=== PATIENT | female | born 1990 | race American Indian/Alaskan Native ===

== ENCOUNTER 2021-02-03 20:59 | Emergency (ER) | payer OTHER ==
--- NOTE | 2021-02-03 21:21 | Event Note ---
ED Screening Note Date of service: 02/03/21 Time: 21:19 ED Screening Note: pt presents with vag bleeding. Onset yesterday. Bleeding light, and used one pad. no bleeding today. She reports abd cramping, urinary frequency and hesistancy. She is G1; First OBGYN appt is 02/16 This initial assessment/diagnostic orders/clinical plan/treatment(s) is/are subject to change based on patients health status, clinical progression and re- assessment by fellow clinical providers in the ED. Further treatment and workup at subsequent clinical providers discretion. Patient/guardian urged not to elope from the ED as their condition may be serious if not clinically assessed and managed. Initial orders include: CBC CMP UA HCG rhogam w/u
[2021-02-03 21:37] LABS: Hemoglobin 13.8 gm/dl (10.1-14.3); Mean Corpuscular HGB Conc 35 % (30-34); Mean Corpuscular Volume 93 fl (79-97); Red Blood Count 4.32 M/mm3 (3.65-5.03); Red Cell Distribution Width 12.9 % (13.2-15.2)
[2021-02-03 21:40] LABS: Bacteria,Urine 1+ /HPF (Negative); Bilirubin,Urine NEG (Negative); Blood,Urine NEG (Negative); Color,Urine Colorless (Yellow); Protein,Urine <15 mg/dL mg/dL (Negative); Urobilinogen,Urine < 2.0 mg/dL (<2.0); WBC,Urine < 1.0 /HPF (0.0-6.0)
[2021-02-03 21:56] LABS: Alanine Aminotransferase 16 units/L (7-56); Albumin 4.5 g/dL (3.9-5); Blood Urea Nitrogen 8 mg/dL (7-17); Calcium 8.9 mg/dL (8.4-10.2); Hemolysis Index 4
[2021-02-03 21:57] LABS: BUN/Creatinine Ratio 16
[2021-02-03 22:29] LABS: Band Neutrophils # (Manual) 0.1 K/mm3; Total Cells Counted 100
[2021-02-03 22:30] LABS: Platelet Clumps Rare; Platelet Estimate Consistent w Auto
[2021-02-03 22:33] LABS: Platelet Count 209 K/mm3 (140-440)
--- NOTE | 2021-02-03 23:03 | Emergency Department Report ---
ED Female HPI - General Chief complaint: Vaginal Bleeding Stated complaint: 6 WEEKS ;VAGINAL BLEEDING Source: patient Mode of arrival: Ambulatory Limitations: No Limitations - History of Present Illness Initial comments: Patient is a A0 30-year-old female who is approximately 5 weeks gestation and who presents to the ED with acute onset persistent vaginal bleeding and pelvic pain for the last 24 hours, worse in the last 6 hours. Patient states that the bleeding in the last 24 hours has been intermittent and persistent. Patient states that the pelvic pain is mild but that she was concerned because the vaginal bleeding was more than spotting. Patient denies dizziness, syncope, fever, chills, nausea, vomiting, chest pain, shortness of breath, headache, vaginal discharge, dysuria, urinary frequency and urgency or back pain. Patient states that she has not been evaluated by an [employer] physician since she conceived this . MD Complaint: vaginal bleeding, pelvic pain -: Sudden, hour(s) (24) Location: suprapubic, other (vagina) Radiation: non-radiating Severity: moderate Severity scale (0 -10): 5 Quality: dull Consistency: intermittent Improves with: none Worsens with: none Are you Now?: Yes Associated Symptoms: denies other symptoms, vaginal bleeding, abdominal pain. denies: vaginal discharge, nausea/vomiting, fever/chills, headaches, loss of appetite, dysuria, hematuria, rash, shortness of breath - Related Data Sexually active: Yes : 1 Para: 0 A: 0 Allergies Allergy/AdvReac Type Severity Reaction Status Date / Time No Known Allergies Allergy Unverified 02/03/21 21:24 ED Review of Systems ROS: Stated complaint: 6 WEEKS ;VAGINAL BLEEDING Other details as noted in HPI Constitutional: denies: chills, fever Eyes: denies: eye pain, eye discharge, vision change ENT: denies: ear pain, throat pain Respiratory: denies: cough, shortness of breath, wheezing Cardiovascular: denies: chest pain, palpitations Endocrine: no symptoms reported Gastrointestinal: abdominal pain (Suprapubic pain). denies: nausea, diarrhea Genitourinary: abnormal menses (Vaginal bleeding). denies: urgency, dysuria, frequency, hematuria, discharge Musculoskeletal: denies: back pain, joint swelling, arthralgia Skin: denies: rash, lesions Neurological: denies: headache, weakness, paresthesias Psychiatric: denies: anxiety, depression Hematological/Lymphatic: denies: easy bleeding, easy bruising ED Past Medical Hx - Past Medical History Previous Medical History?: No - Surgical History Past Surgical History?: Yes Additional Surgical History: Left salpigectomy. Left ovary - Social History Smoking Status: Never Smoker Substance Use Type: None ED Physical Exam - General Limitations: No Limitations General appearance: alert, in no apparent distress - Head Head exam: Present: atraumatic, normocephalic, normal inspection - Eye Eye exam: Present: normal appearance, PERRL, EOMI Pupils: Present: normal accommodation - ENT ENT exam: Present: normal exam, normal orophraynx, mucous membranes moist, TM's normal bilaterally, normal external ear exam - Neck Neck exam: Present: normal inspection, full ROM - Respiratory Respiratory exam: Present: normal lung sounds bilaterally. Absent: respiratory distress, wheezes, rales, rhonchi, stridor, chest wall tenderness, prolonged expiratory - Cardiovascular Cardiovascular Exam: Present: regular rate, normal rhythm, normal heart sounds. Absent: systolic murmur, diastolic murmur, rubs, gallop - GI/Abdominal GI/Abdominal exam: Present: soft, normal bowel sounds. Absent: tenderness, guarding, hyperactive bowel sounds, hypoactive bowel sounds - Bi-manual exam: Present: other (Pelvic exam deferred, patient prefers own [employer]) - Extremities Exam Extremities exam: Present: normal inspection, full ROM, normal capillary refill - Back Exam Back exam: Present: normal inspection, full ROM. Absent: tenderness, CVA tenderness (R), CVA tenderness (L), muscle spasm, paraspinal tenderness - Neurological Exam Neurological exam: Present: alert, oriented X3, CN II-XII intact, normal gait, reflexes normal - Psychiatric Psychiatric exam: Present: normal affect, normal mood - Skin Skin exam: Present: warm, dry, intact, normal color. Absent: rash ED Course Vital Signs 02/03/21 02/04/21 21:07 00:00 Temperature 98.8 F 98.5 F Pulse Rate 82 78 Respiratory 18 18 Rate Blood Pressure 124/75 111/70 O2 Sat by Pulse 100 99 Oximetry ED Medical Decision Making - Lab Data Result diagrams: 02/03/21 21:26 02/03/21 21:26 - Radiology Data Radiology results: report reviewed, image reviewed [facility] [address] [place] [address] Ultrasound Report Signed Patient: SUDHAKAR TERRAZAS MR#: [id number] : 1990 Acct:[id number] Age/Sex: 30 / F ADM Date: 02/03/21 Loc: ED Attending Dr: Ordering Physician: GERARD HUGGINS Date of Service: 02/03/21 Procedure(s): US OB <= 14 weeks fetus Accession Number(s): [id number] cc: GERARD HUGGINS US OB <= 14 weeks fetus INDICATION / CLINICAL INFORMATION: Vaginal bleeding, pain, . TECHNIQUE: Transabdominal. COMPARISON: None available. FINDINGS: UTERUS: Appears within normal limits. GESTATIONAL SAC: Well-defined oval shape and intrauterine in location. Measures 9 mm. EMBRYO/FETUS: - [place]-Rump Length = No pole ADNEXA: No significant abnormality. FREE FLUID: None. ADDITIONAL FINDINGS: None. IMPRESSION: 1. Intrauterine gestational sac with estimated sonographic age of 5 weeks 5 days. No pole which could be related to early intrauterine . Correlate with BHCG and repeat sonogram as clinically indicated. Signer Name: Dilip Menjivar MD Signed: 02/03/2021 10:59 PM Workstation Name: [id number] Transcribed By: NAMITA Dictated By: Dilip Menjivar MD Electronically Authenticated By: Dilip Menjivar MD Signed Date/Time: 02/03/212258 DD/ 54 TD/TT: Print Cancel - Medical Decision Making This is a A0 30-year-old female who is approximately 5 weeks gestation and who presents to the ED with acute onset persistent vaginal bleeding and pelvic pain for the last 24 hours, worse in the last 6 hours. Patient states that the bleeding in the last 24 hours has been intermittent and persistent. Patient states that the pelvic pain is mild but that she was concerned because the vaginal bleeding was more than spotting. In the ED, patient is alert and oriented x3 and is not in distress and is hemodynamically stable. Lab test results were reviewed and are all nonactionable except for mild acute leukocytosis of 11,800 and mild hyponatremia of 136 mmol/L. Urinalysis was also unremarkable. The hCG quant was 5279 and the patient is A positive blood type. The transvaginal ultrasound showed an intrauterine gestational sac with estimated sonographic age of 5 weeks 5 days. No pole which could be related to early intrauterine . Correlate with BHCG and repeat sonogram as clinically indicated. Based on the patient's history and physical exam findings as well as lab test results, the patient was discharged home and advised to maintain complete pelvic rest and to return to the ED to her [employer] physician for serial hCG quant tests in 2 days and for repeat transvaginal ultrasound to assess the heart rate. Patient was also advised to return to the ED immediately if her symptoms get worse. Patient verbalized understanding of the return precautions to the ED and with worsening symptoms. - Differential Diagnosis Threatened miscarriage; Ectopic pregancy; UTI; Subchorionic bleed; Cysts Critical care attestation.: If time is entered above; I have spent that time in minutes in the direct care of this critically ill patient, excluding procedure time. ED Disposition Clinical Impression: Threatened miscarriage in early , Vaginal bleeding in patient after first trimester Disposition: DC-01 TO HOME OR SELFCARE Is pt being admited?: No Does the pt Need Aspirin: No Condition: Stable Instructions: Threatened Miscarriage, [id number], Vaginal Bleeding During , First Trimester, [id number] Additional Instructions: Todos los resultados de las pruebas de laboratorio no son factibles, la cantidad de hCG fue de 5259 y la ecografa vaginal muestra un saco gestacional intrauterino con angel edad ecogrfica estimada de 5 semanas y 5 powers. Sin polo que pudiera estar relacionado con un embarazo intrauterino precoz. Por lo tanto, mantenga un descanso plvico completo sin levantar objetos pesados, actividades sexuales o cualquier otra actividad fsica y agotadora. Renetta un seguimiento con vazquez mdico de [employer] en 5-7 powers para angel reevaluacin. Regrese al servicio de urgencias de inmediato si los sntomas empeoran. Referrals: MARLY HERNANDEZ MD [Staff Physician] - 3-5 Days Time of Disposition: 23:28 Print Language: UPPER SORBIAN
--- NOTE | 2021-02-03 23:04 | Ultrasound Report ---
US OB <= 14 weeks fetus INDICATION / CLINICAL INFORMATION: Vaginal bleeding, pain, . TECHNIQUE: Transabdominal. COMPARISON: None available. FINDINGS: UTERUS: Appears within normal limits. GESTATIONAL SAC: Well-defined oval shape and intrauterine in location. Measures 9 mm. EMBRYO/FETUS: - [place]-Rump Length = No pole ADNEXA: No significant abnormality. FREE FLUID: None. ADDITIONAL FINDINGS: None. IMPRESSION: 1. Intrauterine gestational sac with estimated sonographic age of 5 weeks 5 days. No pole whic h could be related to early intrauterine . Correlate with BHCG and repeat sonogram as clinic ally indicated. Signer Name: Dilip Menjivar MD Signed: 02/03/2021 10:59 PM Workstation Name: [id number]
[2021-02-04 00:01] VITALS: BP 111/70
== END 2021-02-04 00:26 | disposition home or self-care (01) ==
LOC: ED 20:59
DX: O20.0 Threatened abortion (principal); Z3A.01 Less than 8 weeks gestation of pregnancy; Z90.89 Acquired absence of other organs; Z98.890 Other specified postprocedural states
CPT/HCPCS: 36415; 76801; 80053; 81001; 84702; 85007; 85025; 85461; 86850; 86900; 86901

== ENCOUNTER 2021-10-04 15:00 | Inpatient (IN) | payer OTHER ==
[2021-10-04] MEDS ORDERED: LACTATED RINGERS 1,000 ML ONE (16:42)
[2021-10-04] MEDS ORDERED: CARBOPROST TROMETHAMINE 250 MCG/1 ML INJ IM PRN (17:08)
[2021-10-04] MEDS ORDERED: METHYLERGONOVINE MALEATE 0.2 MG/ML VIAL IM PRN (17:08)
[2021-10-04] MEDS ORDERED: TERBUTALINE 1 MG/1 ML INJ SUB-Q PRN (17:08)
[2021-10-04] MEDS ORDERED: OXYTOCIN 10 UNIT/1 ML INJ IM PRN (17:08)
[2021-10-04] MEDS ORDERED: ACETAMINOPHEN 325 MG TAB PO PRN (17:08)
[2021-10-04] MEDS ORDERED: LIDOCAINE (2%) 20 MG/1 ML VIAL 20 ML MDV INFILTRATI ONE (17:08)
[2021-10-04] MEDS ORDERED: LOPERAMIDE 2 MG CAP PO PRN (17:08)
[2021-10-04] MEDS ORDERED: miSOPROStol 200 MCG TAB PR PRN (17:08)
[2021-10-04] MEDS ORDERED: BUTORPHANOL 2 MG/1 ML INJ IV PRN ×2 (17:08)
[2021-10-04] MEDS ORDERED: ePHEDrine SULFATE 50 MG/1 ML INJ IV PRN (17:08)
[2021-10-04] MEDS ORDERED: MINERAL OIL 30 ML ORAL LIQD PO PRN (17:08)
--- NOTE | 2021-10-04 17:58 | History and Physical Report ---
History of Present Illness Date of examination: 10/04/21 Date of admission: 10/04/21 15:00 Chief complaint: Here for an induction History of present illness: 31 y/o presents to [facility] @ 41wks for an IOL r/t post dates. Pt denies VB or LOF and admits to active FM. She initiated her pnc @ [facility] location @ 8 wks gestation. Pt has had an uneventful preg. Medical and family hx is unremarkable. Pt had her left oophorectomy and a tumor removed about 10 yrs ago. She is GBS pos. Pt was admitted to L&D for a cervical IOL. Past History Past Medical History: no pertinent history Past Surgical History: other (left oophorectomy and tumor removed about 10 yrs ago) Family/Genetic History: none Social history: no significant social history, full code - Obstetrical History Expected Date of Delivery: 09/27/21 Actual Gestation: 41 Week(s) 0 Day(s) : 1 Para: 0 Medications and Allergies Allergies Allergy/AdvReac Type Severity Reaction Status Date / Time No Known Allergies Allergy Unverified 02/03/21 21:24 Active Meds: Active Medications Acetaminophen (Acetaminophen 325 Mg Tab) 650 mg PO Q4H PRN PRN Reason: Pain, Mild (1-3) Butorphanol Tartrate (Butorphanol 2 Mg/1 Ml Inj) 2 mg IV Q2H PRN PRN Reason: Pain , Severe (7-10) Butorphanol Tartrate (Butorphanol 2 Mg/1 Ml Inj) 1 mg IV Q2H PRN PRN Reason: Pain, Moderate(4-6) LABOR PAIN Carboprost Tromethamine (Carboprost Tromethamine 250 Mcg/1 Ml Inj) 250 mcg IM ONCE PRN PRN Reason: Uterine Bleeding Dinoprostone (Dinoprostone 10 Mg Vag Supp) 10 mg VG ONCE ONE Stop: 10/04/21 20:01 Ephedrine Sulfate (Ephedrine Sulfate 50 Mg/1 Ml Inj) 10 mg IV Q2M PRN PRN Reason: Hypotension Fentanyl (Fentanyl 100 Mcg/2 Ml Inj) 100 mcg IV Q2H PRN PRN Reason: Pain,Severe (7-10) LABOR PAIN Oxytocin/Sodium Chloride (Pitocin/Ns 30 Unit/500ml) 30 units in 500 mls @ 2 mls/hr IV TITR [place]; Protocol Lactated Ringer's (Lactated Ringers) 1,000 mls @ 125 mls/hr IV DIRECT [place] Oxytocin/Sodium Chloride (Pitocin/Ns 30 Unit/500ml) 30 units in 500 mls @ 40 mls/hr IV TITR [place]; Protocol Ampicillin Sodium (Ampicillin/Ns 2 Gm/100 Ml) 2 gm in 100 mls @ 100 mls/hr IV ONCE ONE; Protocol Stop: 10/04/21 18:59 Ampicillin Sodium (Ampicillin/Ns 1 Gm/50 Ml) 1 gm in 50 mls @ 100 mls/hr IV Q4H [place]; Protocol Stop: 10/06/21 23:59 Loperamide HCl (Loperamide 2 Mg Cap) 2 mg PO ONCE PRN PRN Reason: give with Hemabate Methylergonovine Maleate (Methylergonovine Maleate 0.2 Mg/Ml Vial) 0.2 mg IM ONCE PRN PRN Reason: Uterine Bleeding Mineral Oil (Mineral Oil 30 Ml Oral Liqd) 30 ml PO QHS PRN PRN Reason: Constipation Misoprostol (Misoprostol 200 Mcg Tab) 800 mcg OR ONCE PRN PRN Reason: Uterine Bleeding Oxytocin (Oxytocin 10 Unit/1 Ml Inj) 10 unit IM ONCE PRN PRN Reason: Uterine Bleeding Terbutaline Sulfate (Terbutaline 1 Mg/1 Ml Inj) 0.25 mg SUB-Q ONCE PRN PRN Reason: Hyperstimulation/Hypertonicity Review of Systems All systems: negative Eyes: deferred Ears, nose, mouth and throat: deferred Breasts: normal Genitourinary: normal appearance Rectal Exam: normal exam-external/orifice - Vital Signs Vital signs: Vital Signs Temp Resp 98.7 F 20 10/04/21 15:28 10/04/21 15:28 Temp Pulse Resp BP Pulse Ox 98.7 F 91 H 20 133/89 97 10/04/21 15:28 10/04/21 17:48 10/04/21 15:28 10/04/21 15:50 10/04/21 17:48 - Physical Exam Breasts: Positive: normal Abdomen: Positive: normal appearance, soft, normal bowel sounds, other (gravid) Genitourinary (Female): Positive: normal external genitalia, normal perenium Vulva: both: normal Vagina: Positive: normal moisture Uterus: Positive: enlarged, normal contour, other (gravid) Adnexa: both: normal Anus/Rectum: Positive: normal perianal skin Extremities: Positive: normal - Obstetrical FHR: auscultation normal, category 1 Uterine Contraction Monitor Mode: External Cervical Dilatation: 1 (per nurse) Cervical Effacement Percentage: 60 station: -3 Uterine Contraction Pattern: Irregular Uterine Tone Measurement Phase: Resting Uterine Contraction Intensity: Mild Results All other labs normal. Assessment and Plan A: IUP @ 41wks (postdates) + GBS P: Admit to L&D for a cervidil IOL Continuous monitoring GBS protocal Anticipate
[2021-10-04] MEDS ORDERED: AMPICILLIN/NS 2 GM/100 ML 2 GM/100 ML BAG IV ONE (18:00)
[2021-10-04] MEDS ORDERED: OXYTOCIN DRIP 30 UNITS/500 ML BAG IV SCH ×2 (18:00)
[2021-10-04] MEDS ORDERED: DINOPROSTONE 10 MG VAG SUPP VG ONE ×3 (18:19→20:00)
--- NOTE | 2021-10-04 18:22 | Ultrasound Report ---
LIMITED OBSTETRICAL ULTRASOUND HISTORY: Postdates. FINDINGS: A single viable intrauterine is in the cephalic position. The placenta is posteri igor located at the fundus. heart tones are 159 bpm. Amniotic fluid index is normal measuring 1 4.6 cm. The largest pocket is quadrant 4 (4.9 cm). IMPRESSION: 1. Single viable intrauterine . 2. position cephalic. 3. Amniotic fluid index 14.6 cm. Signer Name: Gómez Veras MD Signed: 10/04/2021 6:18 PM Workstation Name: [id number]
[2021-10-04 18:35] LABS: Hematocrit 39.6 % (30.3-42.9); Hemoglobin 13.3 gm/dl (10.1-14.3); Mean Corpuscular HGB Conc 34 % (30-34); Mean Corpuscular Volume 93 fl (79-97); Platelet Count 244 K/mm3 (140-440); Red Blood Count 4.26 M/mm3 (3.65-5.03); Red Cell Distribution Width 13.8 % (13.2-15.2)
[2021-10-04] MEDS: LACTATED RINGERS 1,000 ML IV SCH (18:43)
[2021-10-05] MEDS: LACTATED RINGERS 1,000 ML IV SCH ×2 (04:52→14:59)
--- NOTE | 2021-10-05 12:15 | Progress Note ---
Assessment and Plan A: at 41 weeks, 1 day gestation. GBS positive. P: Continue IOL. Continuous EFM. GBS prophylaxis. Subjective - Subjective Date of service: 10/05/21 Principal diagnosis: at 41 weeks, 1 day; IOL Interval history: Receiving Pitocin for IOL. No LOF or VB. Patient reports: movement normal, contractions, no new complaints, no loss of fluid, no vaginal bleeding Objective - Vital Signs Vital Signs: Vital Signs - 12hr 10/05/21 10/05/21 10/05/21 00:18 00:23 00:28 Temperature Pulse Rate 115 H 102 H 73 Blood Pressure O2 Sat by Pulse 97 97 96 Oximetry 10/05/21 10/05/21 10/05/21 00:29 00:33 00:38 Temperature Pulse Rate 84 84 83 Blood Pressure O2 Sat by Pulse 94 95 96 Oximetry 10/05/21 10/05/21 10/05/21 00:43 00:48 00:53 Temperature Pulse Rate 85 104 H 94 H Blood Pressure O2 Sat by Pulse 96 97 96 Oximetry 10/05/21 10/05/21 10/05/21 00:58 01:03 01:08 Temperature Pulse Rate 91 H 91 H 85 Blood Pressure O2 Sat by Pulse 96 96 96 Oximetry 10/05/21 10/05/21 10/05/21 01:13 01:18 01:23 Temperature Pulse Rate 79 96 H 92 H Blood Pressure O2 Sat by Pulse 96 97 97 Oximetry 10/05/21 10/05/21 10/05/21 01:28 01:33 01:38 Temperature Pulse Rate 93 H 93 H 94 H Blood Pressure O2 Sat by Pulse 96 96 97 Oximetry 10/05/21 10/05/21 10/05/21 01:43 01:48 01:53 Temperature Pulse Rate 91 H 103 H 96 H Blood Pressure O2 Sat by Pulse 96 96 97 Oximetry 10/05/21 10/05/21 10/05/21 01:58 02:03 02:08 Temperature Pulse Rate 97 H 82 92 H Blood Pressure O2 Sat by Pulse 97 96 96 Oximetry 10/05/21 10/05/21 10/05/21 02:15 02:20 02:25 Temperature Pulse Rate 104 H 108 H 100 H Blood Pressure O2 Sat by Pulse 95 96 96 Oximetry 10/05/21 10/05/21 10/05/21 02:30 02:35 02:40 Temperature Pulse Rate 100 H 92 H 98 H Blood Pressure O2 Sat by Pulse 95 96 96 Oximetry 10/05/21 10/05/21 10/05/21 02:45 02:50 02:55 Temperature Pulse Rate 95 H 97 H 95 H Blood Pressure O2 Sat by Pulse 96 96 96 Oximetry 10/05/21 10/05/21 10/05/21 03:00 03:05 03:10 Temperature Pulse Rate 102 H 112 H 103 H Blood Pressure O2 Sat by Pulse 96 95 96 Oximetry 10/05/21 10/05/21 10/05/21 03:15 03:20 03:25 Temperature Pulse Rate 92 H 99 H 100 H Blood Pressure O2 Sat by Pulse 96 96 96 Oximetry 10/05/21 10/05/21 10/05/21 03:30 03:35 03:40 Temperature Pulse Rate 100 H 98 H 98 H Blood Pressure O2 Sat by Pulse 96 95 96 Oximetry 10/05/21 10/05/21 10/05/21 03:45 03:50 04:03 Temperature Pulse Rate 90 82 129 H Blood Pressure O2 Sat by Pulse 95 95 98 Oximetry 10/05/21 10/05/21 10/05/21 04:08 04:09 04:13 Temperature Pulse Rate 113 H 98 H 97 H Blood Pressure O2 Sat by Pulse 97 94 96 Oximetry 10/05/21 10/05/21 10/05/21 04:18 04:23 04:28 Temperature Pulse Rate 90 90 106 H Blood Pressure O2 Sat by Pulse 95 95 97 Oximetry 10/05/21 10/05/21 10/05/21 04:33 04:38 04:43 Temperature Pulse Rate 93 H 94 H 102 H Blood Pressure O2 Sat by Pulse 95 96 96 Oximetry 10/05/21 10/05/21 10/05/21 04:48 04:53 04:58 Temperature Pulse Rate 84 104 H 98 H Blood Pressure O2 Sat by Pulse 96 97 97 Oximetry 10/05/21 10/05/21 10/05/21 05:03 05:08 05:10 Temperature Pulse Rate 88 98 H 98 H Blood Pressure O2 Sat by Pulse 95 96 94 Oximetry 10/05/21 10/05/21 10/05/21 05:13 05:18 05:23 Temperature Pulse Rate 97 H 98 H 96 H Blood Pressure O2 Sat by Pulse 96 97 96 Oximetry 10/05/21 10/05/21 10/05/21 05:28 05:33 05:38 Temperature Pulse Rate 85 74 80 Blood Pressure O2 Sat by Pulse 96 96 96 Oximetry 10/05/21 10/05/21 10/05/21 05:52 05:57 06:02 Temperature Pulse Rate 116 H 120 H 127 H Blood Pressure O2 Sat by Pulse 95 96 95 Oximetry 10/05/21 10/05/21 10/05/21 06:07 06:12 06:16 Temperature Pulse Rate 122 H 129 H 125 H Blood Pressure O2 Sat by Pulse 96 96 94 Oximetry 10/05/21 10/05/21 10/05/21 06:17 06:21 06:22 Temperature Pulse Rate 120 H 132 H 123 H Blood Pressure O2 Sat by Pulse 96 94 95 Oximetry 10/05/21 10/05/21 10/05/21 06:34 06:39 06:44 Temperature Pulse Rate 108 H 102 H 102 H Blood Pressure O2 Sat by Pulse 97 96 96 Oximetry 10/05/21 10/05/21 10/05/21 06:49 06:54 06:59 Temperature Pulse Rate 114 H 108 H 100 H Blood Pressure O2 Sat by Pulse 96 97 96 Oximetry 10/05/21 10/05/21 10/05/21 07:04 07:09 07:13 Temperature Pulse Rate 98 H 101 H 93 H Blood Pressure O2 Sat by Pulse 96 96 94 Oximetry 10/05/21 10/05/21 10/05/21 07:14 07:19 07:24 Temperature Pulse Rate 94 H 88 103 H Blood Pressure O2 Sat by Pulse 95 95 96 Oximetry 10/05/21 10/05/21 10/05/21 07:29 07:30 07:34 Temperature Pulse Rate 104 H 90 110 H Blood Pressure 138/90 O2 Sat by Pulse 96 97 Oximetry 10/05/21 10/05/21 10/05/21 07:39 07:44 07:49 Temperature Pulse Rate 103 H 82 92 H Blood Pressure O2 Sat by Pulse 97 96 95 Oximetry 10/05/21 10/05/21 10/05/21 07:54 07:59 08:04 Temperature Pulse Rate 83 99 H 79 Blood Pressure 135/79 O2 Sat by Pulse 95 96 96 Oximetry 10/05/21 10/05/21 10/05/21 08:09 08:14 08:19 Temperature Pulse Rate 96 H 90 83 Blood Pressure O2 Sat by Pulse 97 95 95 Oximetry 10/05/21 10/05/21 10/05/21 08:24 08:29 08:34 Temperature Pulse Rate 104 H 89 87 Blood Pressure 125/79 O2 Sat by Pulse 96 96 96 Oximetry 10/05/21 10/05/21 10/05/21 08:39 08:44 08:49 Temperature Pulse Rate 77 89 95 H Blood Pressure O2 Sat by Pulse 96 96 96 Oximetry 10/05/21 10/05/21 10/05/21 08:54 08:59 09:04 Temperature Pulse Rate 84 81 78 Blood Pressure 134/82 O2 Sat by Pulse 96 96 96 Oximetry 10/05/21 10/05/21 10/05/21 09:05 09:09 09:14 Temperature Pulse Rate 93 H 93 H 109 H Blood Pressure O2 Sat by Pulse 94 95 96 Oximetry 10/05/21 10/05/21 10/05/21 09:19 09:24 09:29 Temperature Pulse Rate 92 H 113 H 89 Blood Pressure 139/79 O2 Sat by Pulse 98 97 97 Oximetry 10/05/21 10/05/21 10/05/21 09:34 09:39 09:44 Temperature Pulse Rate 90 97 H 91 H Blood Pressure O2 Sat by Pulse 97 97 96 Oximetry 10/05/21 10/05/21 10/05/21 09:49 09:54 09:58 Temperature Pulse Rate 89 93 H 82 Blood Pressure O2 Sat by Pulse 95 96 94 Oximetry 10/05/21 10/05/21 10/05/21 09:59 10:00 10:04 Temperature Pulse Rate 89 83 88 Blood Pressure 129/81 O2 Sat by Pulse 96 96 Oximetry 10/05/21 10/05/21 10/05/21 10:09 10:14 10:19 Temperature Pulse Rate 87 92 H 87 Blood Pressure O2 Sat by Pulse 96 97 96 Oximetry 10/05/21 10/05/21 10/05/21 10:24 10:29 10:30 Temperature Pulse Rate 85 91 H 90 Blood Pressure 138/86 O2 Sat by Pulse 96 97 Oximetry 10/05/21 10/05/21 10/05/21 10:31 10:34 10:39 Temperature Pulse Rate 85 73 82 Blood Pressure O2 Sat by Pulse 93 95 95 Oximetry 10/05/21 10/05/21 10/05/21 10:42 10:44 10:49 Temperature Pulse Rate 97 H 82 88 Blood Pressure O2 Sat by Pulse 94 96 95 Oximetry 10/05/21 10/05/21 10/05/21 10:59 11:04 11:09 Temperature Pulse Rate 53 L 87 83 Blood Pressure O2 Sat by Pulse 88 98 98 Oximetry 10/05/21 10/05/21 10/05/21 11:14 11:19 11:24 Temperature Pulse Rate 96 H 85 96 H Blood Pressure O2 Sat by Pulse 98 98 97 Oximetry 10/05/21 10/05/21 10/05/21 11:29 11:34 11:39 Temperature Pulse Rate 98 H 80 91 H Blood Pressure O2 Sat by Pulse 98 99 99 Oximetry 10/05/21 10/05/21 10/05/21 11:44 11:49 11:54 Temperature 98.2 F Pulse Rate 79 81 70 Blood Pressure O2 Sat by Pulse 97 98 98 Oximetry 10/05/21 10/05/21 10/05/21 11:59 12:02 12:03 Temperature 98.7 F Pulse Rate 93 H 82 Blood Pressure 138/87 O2 Sat by Pulse 98 Oximetry 10/05/21 10/05/21 12:04 12:09 Temperature Pulse Rate 94 H 88 Blood Pressure O2 Sat by Pulse 98 98 Oximetry - Exam Abdomen: Present: normal appearance, soft. Absent: distention, tenderness, guarding, rigidity FHR: category 1 Uterine Contraction Monitor Mode: External Cervical Dilatation: 2 Cervical Effacement Percentage: 40 station: -4 Uterine Contraction Pattern: Irregular Uterine Contraction Intensity: Mild Extremities: edema - Labs Labs: Laboratory Results - last 24 hr 10/04/21 10/04/21 10/04/21 15:40 Unknown Unknown WBC 9.5 RBC 4.26 Hgb 13.3 Hct 39.6 MCV 93 MCH 31 MCHC 34 RDW 13.8 Plt Count 244 Syphilis IgG Antibody Nonreactive Blood Type A POSITIVE Antibody Screen Negative
[2021-10-05] MEDS: AMPICILLIN/NS 1 GM/50 ML 1 GM/50 ML BAG IV SCH ×3 (12:19→23:15)
[2021-10-05] MEDS: fentaNYL 100 MCG/2 ML INJ IV PRN (21:57)
[2021-10-06] MEDS: fentaNYL 100 MCG/2 ML INJ IV PRN ×2 (01:27→05:01)
[2021-10-06] MEDS: AMPICILLIN/NS 1 GM/50 ML 1 GM/50 ML BAG IV SCH ×5 (03:22→21:00)
--- NOTE | 2021-10-06 05:00 | Event Note ---
Date: 10/06/21 SVE /-2.
[2021-10-06] MEDS ORDERED: ePHEDrine SULFATE 50 MG/1 ML INJ IV PRN (05:41)
[2021-10-06] MEDS ORDERED: NALOXONE 2 MG/2 ML INJ IV PRN (05:41)
--- NOTE | 2021-10-06 05:41 | Anesthesia Consultation ---
Anesthesia Consult and Med Hx Date of service: 10/06/21 - Airway Anesthetic Teeth Evaluation: Poor ROM Head & Neck: Adequate Mental/Hyoid Distance: Adequate Mallampati Class: Class II Intubation Access Assessment: Probably Good - Pulmonary Exam CTA: Yes - Cardiac Exam Cardiac Exam: RRR - Pre-Operative Health Status ASA Pre-Surgery Classification: ASA2 Proposed Anesthetic Plan: Epidural - Pulmonary Hx Smoking: No Hx Asthma: No Hx Respiratory Symptoms: No SOB: No COPD: No Home Oxygen Therapy: No Hx Pneumonia: No Hx Sleep Apnea: No - Cardiovascular System Hx Hypertension: No Hx Coronary Artery Disease: No Hx Heart Attack/AMI: No Hx Angina: No Hx Percutaneous Transluminal Coronary Angioplasty (PTCA): No Hx Cardia Arrhythmia: No Hx Pacemaker: No Hx Internal Defibrillator: No Hx Valvular Heart Disease: No Hx Heart Murmur: No Hx Peripheral Vascular Disease: No - Central Nervous System Hx Neuromuscular Disorder: No Hx Seizures: No CVA: No Hx Back Pain: Yes Hx Psychiatric Problems: No - Gastrointestinal Hx Ulcer: No Hx Gastroesophageal Reflux Disease: Yes - Endocrine Hx Renal Disease: No Hx End Stage Renal Disease: No Hx Cirrhosis: No Hx Liver Disease: No Hx Insulin Dependent Diabetes: No Hx Non-Insulin Dependent Diabetes: No Hx Thyroid Disease: No Hx Hypothyroidism: No Hx Hyperthyroidism: No - Hematic Hx Anemia: No Hx Sickle Cell Disease: No - Other Systems Hx Alcohol Use: No Hx Substance Use: No Hx Cancer: No Hx Obesity: Yes
--- NOTE | 2021-10-06 06:18 | Progress Note ---
Regional Anesthesia Block - Regional Anesthesia Block Start Time: 05:56 Stop Time: 06:05 Performed By:: SHAYNE RENE Procedure: Patient is requesting a laboring epidural for laboring pain. Patient IDed, H&P reviewed, all questions and concerns were answered, and consent was signed. Timeout was performed at bedside. Patient in sitting position. Sterile prep and drape was performed. [3] ml of 1% lidocaine skin wheal at L[3]- L [4]. 18- gauge Tuohy epidural needle was advanced to loss of resistance with saline technique 6cm. Negative CSF negative blood. Epidural catheter advanced to [10] centimeters. [NEGATIVE] Aspiration [NEGATIVE] test dose. Sterile dressing applied. Patient tolerated procedure.
[2021-10-06] MEDS: fentaNYL-BUPIV 2 MCG/ML-0.125% 200 MCG/100 ML BAG EPIDURAL SCH ×3 (06:20→20:00)
[2021-10-06] MEDS: LACTATED RINGERS 1,000 ML IV SCH ×2 (07:28→16:27)
--- NOTE | 2021-10-06 10:25 | Progress Note ---
Assessment and Plan - Patient Problems (1) Post-dates Current Visit: Yes Status: Acute Plan to address problem: Now on day 3 of postdates induction. Now 7 centimeters status post artificial rupture membranes thin meconium. --Pitocin per protocol for induction of labor --Anticipate Subjective - Subjective Date of service: 10/06/21 Principal diagnosis: at 41 weeks, 3 day; IOL Interval history: Patient reports she is feeling well understands indication for delivery for postdates induction. Patient reports: loss of fluid (s/p AROM thin meconium), movement normal, contractions, no new complaints, no vaginal bleeding Objective - Vital Signs Vital Signs: Vital Signs - 12hr 10/05/21 10/05/21 10/05/21 22:26 22:31 22:36 Temperature Pulse Rate 82 81 97 H Respiratory Rate Blood Pressure O2 Sat by Pulse 96 96 96 Oximetry O2 Sat by Pulse Oximetry [ Bilateral Throughout] 10/05/21 10/05/21 10/05/21 22:38 22:41 22:43 Temperature Pulse Rate 78 84 85 Respiratory Rate Blood Pressure 126/71 O2 Sat by Pulse 95 94 Oximetry O2 Sat by Pulse Oximetry [ Bilateral Throughout] 10/05/21 10/05/21 10/05/21 22:46 22:51 22:56 Temperature Pulse Rate 82 77 79 Respiratory Rate Blood Pressure O2 Sat by Pulse 95 96 96 Oximetry O2 Sat by Pulse Oximetry [ Bilateral Throughout] 10/05/21 10/05/21 10/05/21 23:01 23:06 23:08 Temperature Pulse Rate 83 78 84 Respiratory Rate Blood Pressure 119/67 O2 Sat by Pulse 95 96 Oximetry O2 Sat by Pulse Oximetry [ Bilateral Throughout] 10/05/21 10/05/21 10/05/21 23:11 23:16 23:21 Temperature Pulse Rate 81 78 80 Respiratory Rate Blood Pressure O2 Sat by Pulse 96 96 95 Oximetry O2 Sat by Pulse Oximetry [ Bilateral Throughout] 10/05/21 10/05/21 10/05/21 23:26 23:31 23:36 Temperature Pulse Rate 79 88 72 Respiratory Rate Blood Pressure O2 Sat by Pulse 96 96 96 Oximetry O2 Sat by Pulse Oximetry [ Bilateral Throughout] 10/05/21 10/05/21 10/05/21 23:38 23:41 23:46 Temperature Pulse Rate 85 78 103 H Respiratory Rate Blood Pressure 125/72 O2 Sat by Pulse 95 97 Oximetry O2 Sat by Pulse Oximetry [ Bilateral Throughout] 10/05/21 10/05/21 10/06/21 23:51 23:56 00:01 Temperature Pulse Rate 81 92 H 85 Respiratory Rate Blood Pressure O2 Sat by Pulse 96 96 96 Oximetry O2 Sat by Pulse Oximetry [ Bilateral Throughout] 10/06/21 10/06/21 10/06/21 00:06 00:09 00:11 Temperature Pulse Rate 82 77 72 Respiratory Rate Blood Pressure 141/75 O2 Sat by Pulse 96 96 Oximetry O2 Sat by Pulse Oximetry [ Bilateral Throughout] 10/06/21 10/06/21 10/06/21 00:16 00:21 00:26 Temperature Pulse Rate 75 88 88 Respiratory Rate Blood Pressure O2 Sat by Pulse 95 96 95 Oximetry O2 Sat by Pulse Oximetry [ Bilateral Throughout] 10/06/21 10/06/21 10/06/21 00:42 00:47 00:54 Temperature Pulse Rate 112 H 109 H 98 H Respiratory Rate Blood Pressure O2 Sat by Pulse 97 97 97 Oximetry O2 Sat by Pulse Oximetry [ Bilateral Throughout] 10/06/21 10/06/21 10/06/21 00:59 01:04 01:19 Temperature Pulse Rate 92 H 80 99 H Respiratory Rate Blood Pressure O2 Sat by Pulse 97 99 97 Oximetry O2 Sat by Pulse Oximetry [ Bilateral Throughout] 10/06/21 10/06/21 10/06/21 01:24 01:29 01:32 Temperature Pulse Rate 87 88 80 Respiratory Rate Blood Pressure O2 Sat by Pulse 97 99 94 Oximetry O2 Sat by Pulse Oximetry [ Bilateral Throughout] 10/06/21 10/06/21 10/06/21 01:34 01:37 01:39 Temperature Pulse Rate 80 73 75 Respiratory Rate Blood Pressure 119/67 O2 Sat by Pulse 95 94 94 Oximetry O2 Sat by Pulse Oximetry [ Bilateral Throughout] 10/06/21 10/06/21 10/06/21 01:42 01:44 01:49 Temperature Pulse Rate 83 80 84 Respiratory Rate Blood Pressure O2 Sat by Pulse 94 95 95 Oximetry O2 Sat by Pulse Oximetry [ Bilateral Throughout] 10/06/21 10/06/21 10/06/21 01:51 01:54 01:59 Temperature Pulse Rate 88 83 97 H Respiratory Rate Blood Pressure O2 Sat by Pulse 94 95 95 Oximetry O2 Sat by Pulse Oximetry [ Bilateral Throughout] 10/06/21 10/06/21 10/06/21 02:04 02:07 02:09 Temperature Pulse Rate 82 92 H 74 Respiratory Rate Blood Pressure 131/67 O2 Sat by Pulse 95 94 95 Oximetry O2 Sat by Pulse Oximetry [ Bilateral Throughout] 10/06/21 10/06/21 10/06/21 02:14 02:19 02:24 Temperature Pulse Rate 102 H 92 H 74 Respiratory Rate Blood Pressure O2 Sat by Pulse 97 95 96 Oximetry O2 Sat by Pulse Oximetry [ Bilateral Throughout] 10/06/21 10/06/21 10/06/21 02:29 02:34 02:39 Temperature Pulse Rate 85 88 85 Respiratory Rate Blood Pressure 127/74 O2 Sat by Pulse 95 96 96 Oximetry O2 Sat by Pulse Oximetry [ Bilateral Throughout] 10/06/21 10/06/21 10/06/21 02:44 02:49 02:54 Temperature Pulse Rate 92 H 100 H 103 H Respiratory Rate Blood Pressure O2 Sat by Pulse 96 98 98 Oximetry O2 Sat by Pulse Oximetry [ Bilateral Throughout] 10/06/21 10/06/21 10/06/21 02:59 03:04 03:09 Temperature Pulse Rate 110 H 77 95 H Respiratory Rate Blood Pressure 152/86 O2 Sat by Pulse 98 98 98 Oximetry O2 Sat by Pulse Oximetry [ Bilateral Throughout] 10/06/21 10/06/21 10/06/21 03:25 03:30 03:35 Temperature 98.8 F Pulse Rate 117 H 99 H 100 H Respiratory 18 Rate Blood Pressure O2 Sat by Pulse 96 98 95 Oximetry O2 Sat by Pulse Oximetry [ Bilateral Throughout] 10/06/21 10/06/21 10/06/21 03:38 03:40 03:45 Temperature Pulse Rate 91 H 85 94 H Respiratory Rate Blood Pressure 126/71 O2 Sat by Pulse 93 95 96 Oximetry O2 Sat by Pulse Oximetry [ Bilateral Throughout] 10/06/21 10/06/21 10/06/21 03:50 03:55 04:00 Temperature Pulse Rate 83 71 77 Respiratory Rate Blood Pressure O2 Sat by Pulse 95 96 95 Oximetry O2 Sat by Pulse Oximetry [ Bilateral Throughout] 10/06/21 10/06/21 10/06/21 04:05 04:08 04:10 Temperature Pulse Rate 86 86 96 H Respiratory Rate Blood Pressure 138/79 O2 Sat by Pulse 96 94 98 Oximetry O2 Sat by Pulse Oximetry [ Bilateral Throughout] 10/06/21 10/06/21 10/06/21 04:15 04:20 04:26 Temperature Pulse Rate 98 H 96 H 94 H Respiratory Rate Blood Pressure O2 Sat by Pulse 98 98 98 Oximetry O2 Sat by Pulse Oximetry [ Bilateral Throughout] 10/06/21 10/06/21 10/06/21 04:38 04:40 04:46 Temperature Pulse Rate 101 H Respiratory Rate Blood Pressure 122/83 O2 Sat by Pulse 86 50 L Oximetry O2 Sat by Pulse Oximetry [ Bilateral Throughout] 10/06/21 10/06/21 10/06/21 05:08 05:39 05:56 Temperature Pulse Rate 89 90 Respiratory Rate Blood Pressure 121/69 133/78 O2 Sat by Pulse 83 L Oximetry O2 Sat by Pulse Oximetry [ Bilateral Throughout] 10/06/21 10/06/21 10/06/21 05:57 06:00 06:02 Temperature Pulse Rate 130 H 123 H 132 H Respiratory Rate Blood Pressure 140/82 140/89 O2 Sat by Pulse 99 97 Oximetry O2 Sat by Pulse Oximetry [ Bilateral Throughout] 10/06/21 10/06/21 10/06/21 06:04 06:06 06:07 Temperature Pulse Rate 109 H 118 H 111 H Respiratory Rate Blood Pressure 144/79 147/80 O2 Sat by Pulse 96 Oximetry O2 Sat by Pulse Oximetry [ Bilateral Throughout] 10/06/21 10/06/21 10/06/21 06:08 06:10 06:12 Temperature Pulse Rate 111 H 114 H 116 H Respiratory Rate Blood Pressure 140/75 139/74 142/79 O2 Sat by Pulse 96 Oximetry O2 Sat by Pulse Oximetry [ Bilateral Throughout] 10/06/21 10/06/21 10/06/21 06:14 06:16 06:17 Temperature Pulse Rate 104 H 96 H 100 H Respiratory Rate Blood Pressure 142/72 131/78 O2 Sat by Pulse 95 Oximetry O2 Sat by Pulse Oximetry [ Bilateral Throughout] 10/06/21 10/06/21 10/06/21 06:18 06:20 06:22 Temperature Pulse Rate 100 H 98 H 95 H Respiratory Rate Blood Pressure 131/68 122/71 126/70 O2 Sat by Pulse 94 Oximetry O2 Sat by Pulse Oximetry [ Bilateral Throughout] 10/06/21 10/06/21 10/06/21 06:24 06:26 06:27 Temperature Pulse Rate 90 103 H 107 H Respiratory Rate Blood Pressure 117/64 126/72 O2 Sat by Pulse 95 Oximetry O2 Sat by Pulse Oximetry [ Bilateral Throughout] 10/06/21 10/06/21 10/06/21 06:28 06:30 06:32 Temperature Pulse Rate 101 H 103 H 99 H Respiratory Rate Blood Pressure 129/72 139/80 129/76 O2 Sat by Pulse 94 95 Oximetry O2 Sat by Pulse Oximetry [ Bilateral Throughout] 10/06/21 10/06/21 10/06/21 06:33 06:34 06:36 Temperature Pulse Rate 94 H 98 H 85 Respiratory Rate Blood Pressure 129/75 121/68 O2 Sat by Pulse 94 Oximetry O2 Sat by Pulse Oximetry [ Bilateral Throughout] 10/06/21 10/06/21 10/06/21 06:37 06:38 06:40 Temperature Pulse Rate 88 88 94 H Respiratory Rate Blood Pressure 115/62 116/62 O2 Sat by Pulse 94 Oximetry O2 Sat by Pulse Oximetry [ Bilateral Throughout] 10/06/21 10/06/21 10/06/21 06:42 06:44 06:46 Temperature Pulse Rate 90 88 86 Respiratory Rate Blood Pressure 109/58 114/63 115/63 O2 Sat by Pulse 94 94 Oximetry O2 Sat by Pulse Oximetry [ Bilateral Throughout] 10/06/21 10/06/21 10/06/21 06:47 06:48 06:50 Temperature Pulse Rate 87 85 88 Respiratory Rate Blood Pressure 112/57 109/58 O2 Sat by Pulse 94 Oximetry O2 Sat by Pulse Oximetry [ Bilateral Throughout] 10/06/21 10/06/21 10/06/21 06:52 06:54 06:56 Temperature Pulse Rate 88 87 81 Respiratory Rate Blood Pressure 109/55 109/56 109/55 O2 Sat by Pulse 94 Oximetry O2 Sat by Pulse Oximetry [ Bilateral Throughout] 10/06/21 10/06/21 10/06/21 06:57 06:58 07:00 Temperature Pulse Rate 85 83 85 Respiratory Rate Blood Pressure 110/55 107/54 O2 Sat by Pulse 93 Oximetry O2 Sat by Pulse Oximetry [ Bilateral Throughout] 10/06/21 10/06/21 10/06/21 07:02 07:03 07:04 Temperature Pulse Rate 86 100 H 114 H Respiratory Rate Blood Pressure 103/54 120/73 O2 Sat by Pulse 93 94 Oximetry O2 Sat by Pulse Oximetry [ Bilateral Throughout] 10/06/21 10/06/21 10/06/21 07:06 07:07 07:08 Temperature Pulse Rate 96 H 113 H 116 H Respiratory Rate Blood Pressure 118/72 123/71 O2 Sat by Pulse 95 Oximetry O2 Sat by Pulse Oximetry [ Bilateral Throughout] 10/06/21 10/06/21 10/06/21 07:09 07:10 07:12 Temperature Pulse Rate 104 H 104 H 124 H Respiratory Rate Blood Pressure 116/65 116/60 O2 Sat by Pulse 94 94 Oximetry O2 Sat by Pulse Oximetry [ Bilateral Throughout] 10/06/21 10/06/21 10/06/21 07:14 07:15 07:16 Temperature Pulse Rate 101 H 107 H 103 H Respiratory Rate Blood Pressure 119/59 119/63 O2 Sat by Pulse 94 Oximetry O2 Sat by Pulse Oximetry [ Bilateral Throughout] 10/06/21 10/06/21 10/06/21 07:17 07:18 07:20 Temperature Pulse Rate 103 H 101 H 94 H Respiratory Rate Blood Pressure 113/60 115/59 O2 Sat by Pulse 95 94 Oximetry O2 Sat by Pulse Oximetry [ Bilateral Throughout] 10/06/21 10/06/21 10/06/21 07:22 07:24 07:26 Temperature Pulse Rate 109 H 103 H 113 H Respiratory Rate Blood Pressure 116/63 116/64 115/64 O2 Sat by Pulse 95 94 Oximetry O2 Sat by Pulse Oximetry [ Bilateral Throughout] 10/06/21 10/06/21 10/06/21 07:27 07:32 07:36 Temperature 98.9 F Pulse Rate 96 H 98 H 112 H Respiratory Rate Blood Pressure O2 Sat by Pulse 98 98 Oximetry O2 Sat by Pulse 98 Oximetry [ Bilateral Throughout] 10/06/21 10/06/21 10/06/21 07:37 07:42 07:47 Temperature Pulse Rate 106 H 102 H 91 H Respiratory Rate Blood Pressure 110/62 O2 Sat by Pulse 97 98 98 Oximetry O2 Sat by Pulse Oximetry [ Bilateral Throughout] 10/06/21 10/06/21 10/06/21 07:52 07:57 08:02 Temperature Pulse Rate 94 H 96 H 97 H Respiratory Rate Blood Pressure 113/64 O2 Sat by Pulse 97 97 98 Oximetry O2 Sat by Pulse Oximetry [ Bilateral Throughout] 10/06/21 10/06/21 10/06/21 08:07 08:12 08:17 Temperature Pulse Rate 91 H 94 H 89 Respiratory Rate Blood Pressure 111/60 O2 Sat by Pulse 98 98 98 Oximetry O2 Sat by Pulse Oximetry [ Bilateral Throughout] 10/06/21 10/06/21 10/06/21 08:22 08:27 08:32 Temperature Pulse Rate 80 84 107 H Respiratory Rate Blood Pressure 113/65 O2 Sat by Pulse 98 98 99 Oximetry O2 Sat by Pulse Oximetry [ Bilateral Throughout] 10/06/21 10/06/21 10/06/21 08:37 08:38 08:42 Temperature Pulse Rate 89 89 104 H Respiratory Rate Blood Pressure 112/64 O2 Sat by Pulse 95 94 95 Oximetry O2 Sat by Pulse Oximetry [ Bilateral Throughout] 10/06/21 10/06/21 10/06/21 08:44 08:47 08:52 Temperature Pulse Rate 98 H 97 H 94 H Respiratory Rate Blood Pressure O2 Sat by Pulse 94 95 94 Oximetry O2 Sat by Pulse Oximetry [ Bilateral Throughout] 10/06/21 10/06/21 10/06/21 08:57 08:58 09:02 Temperature Pulse Rate 111 H 107 H 95 H Respiratory Rate Blood Pressure 120/61 O2 Sat by Pulse 94 94 94 Oximetry O2 Sat by Pulse Oximetry [ Bilateral Throughout] 10/06/21 10/06/21 10/06/21 09:07 09:12 09:17 Temperature Pulse Rate 92 H 85 91 H Respiratory Rate Blood Pressure 118/60 O2 Sat by Pulse 93 93 93 Oximetry O2 Sat by Pulse Oximetry [ Bilateral Throughout] 10/06/21 10/06/21 10/06/21 09:22 09:27 09:32 Temperature Pulse Rate 89 89 89 Respiratory Rate Blood Pressure 109/57 O2 Sat by Pulse 93 93 93 Oximetry O2 Sat by Pulse Oximetry [ Bilateral Throughout] 10/06/21 10/06/21 10/06/21 09:37 09:39 09:41 Temperature Pulse Rate 105 H 101 H 98 H Respiratory Rate Blood Pressure 110/57 O2 Sat by Pulse 93 94 Oximetry O2 Sat by Pulse Oximetry [ Bilateral Throughout] 10/06/21 10/06/21 10/06/21 09:42 09:46 09:47 Temperature Pulse Rate 103 H 94 H 93 H Respiratory Rate Blood Pressure O2 Sat by Pulse 95 94 95 Oximetry O2 Sat by Pulse Oximetry [ Bilateral Throughout] 10/06/21 10/06/21 10/06/21 09:52 09:57 10:02 Temperature Pulse Rate 105 H 112 H 99 H Respiratory Rate Blood Pressure 128/70 O2 Sat by Pulse 97 97 94 Oximetry O2 Sat by Pulse Oximetry [ Bilateral Throughout] 10/06/21 10/06/21 10/06/21 10:07 10:12 10:13 Temperature Pulse Rate 113 H 116 H 102 H Respiratory Rate Blood Pressure 128/71 O2 Sat by Pulse 97 95 Oximetry O2 Sat by Pulse Oximetry [ Bilateral Throughout] 10/06/21 10:17 Temperature Pulse Rate 99 H Respiratory Rate Blood Pressure O2 Sat by Pulse 96 Oximetry O2 Sat by Pulse Oximetry [ Bilateral Throughout] - Exam Uterus: Present: normal FHR: category 1 Uterine Contraction Monitor Mode: External Cervical Dilatation: 7 Cervical Effacement Percentage: 80 station: -1 Uterine Contraction Pattern: Regular - Labs Labs: Laboratory Results - last 24 hr 10/05/21 09:40 Coronavirus (PCR) Negative
--- NOTE | 2021-10-06 18:57 | Event Note ---
Date: 10/06/21 Patient with slow labor progression. Only 0.5 cm change today, however with change in station, now 0 station. Head more engaged in the pelvis. Patient adamantly against section at this time. Decreased urine output and somewhat bloody urine. Possibly associated with head engagement of fetus. Increasing swelling (including labia) with occasional not-severe BP elevations. Will obtain PIH labs. Continue to monitor. Anticipate . Will readdress c section if labor stalls. If patient continues to decline if c/s indicated, will have patient sigh refusal of treatment form.
[2021-10-06 21:50] LABS: Hematocrit 36.2 % (30.3-42.9); Hemoglobin 12.1 gm/dl (10.1-14.3); Mean Corpuscular HGB Conc 33 % (30-34); Mean Corpuscular Volume 93 fl (79-97); Platelet Count 196 K/mm3 (140-440); Red Blood Count 3.91 M/mm3 (3.65-5.03); Red Cell Distribution Width 13.8 % (13.2-15.2)
[2021-10-06 22:12] LABS: Alanine Aminotransferase 18 units/L (7-56); Uric Acid 6.9 mg/dL (3.5-7.6)
[2021-10-06] MEDS ORDERED: BUPIVACAINE/PF (0.5%) 5 MG/1 ML 10 ML VIAL INFILTRATI ONE (23:04)
[2021-10-07] MEDS ORDERED: FAMOTIDINE 20 MG/2 ML INJ IV ONE ×2 (01:17→01:27)
[2021-10-07] MEDS ORDERED: METOCLOPRAMIDE 10 MG/2 ML INJ ONE (01:17)
[2021-10-07] MEDS ORDERED: BICITRA ORAL LIQD 30ML ONE (01:18)
[2021-10-07] MEDS ORDERED: ceFAZolin/Water 2 GM/20 ML 2 GM/20 ML SYRINGE IV ONE (01:18)
[2021-10-07] MEDS ORDERED: BICITRA ORAL LIQD 30ML PO ONE (01:27)
[2021-10-07] MEDS ORDERED: METOCLOPRAMIDE 10 MG/2 ML INJ IV ONE (01:27)
[2021-10-07] MEDS ORDERED: LACTATED RINGERS 1,000 ML IV SCH (01:30)
[2021-10-07] MEDS ORDERED: BUPIVACAINE/PF (0.5%) 5 MG/1 ML 10 ML VIAL INFILTRATI ONE (01:57)
[2021-10-07] MEDS ORDERED: OXYTOCIN DRIP 30 UNITS/500 ML BAG IV SCH ×2 (02:00→05:00)
[2021-10-07] MEDS ORDERED: SODIUM CHLORIDE 0.9% IRR 1,500 ML BOTTLE IR ONE (02:44)
[2021-10-07] MEDS ORDERED: WATER FOR IRRIG STERILE 1,500 ML BOTTLE IR ONE (02:44)
[2021-10-07] MEDS ORDERED: ceFAZolin/STERILE WATER 2 GM/20 ML SYRINGE IV ONE (02:44)
[2021-10-07] MEDS ORDERED: KETOROLAC 30 MG/1 ML INJ ONE (03:01)
[2021-10-07] MEDS ORDERED: ONDANSETRON 4 MG/2 ML INJ ONE ×2 (03:01)
[2021-10-07] MEDS ORDERED: BUPIVACAINE/PF (0.5%) 5 MG/1 ML 30 ML VIAL INFILTRATI ONE (03:01)
[2021-10-07] MEDS ORDERED: dexAMETHasone 20 MG/5 ML VIAL ONE (03:33)
[2021-10-07] MEDS ORDERED: BUPIVACAINE/PF (0.25%) 2.5 MG/ML 30 ML VIAL INFILTRATI ONE ×2 (03:33)
[2021-10-07] MEDS ORDERED: HYDROCORTISONE 25 MG RECTAL SUPP PR PRN (04:20)
[2021-10-07] MEDS ORDERED: ONDANSETRON 4 MG/2 ML INJ IV PRN (04:20)
[2021-10-07] MEDS ORDERED: ACETAMINOPHEN 325 MG TAB PO PRN (04:20)
[2021-10-07] MEDS ORDERED: MORPHINE 4 MG/1 ML INJ IV PRN (04:20)
[2021-10-07] MEDS ORDERED: LANOLIN/ZINC/DIMETHICONE (LANSINOH) 7 GM TP PRN (04:20)
[2021-10-07] MEDS ORDERED: SIMETHICONE 80 MG CHEW TAB PO PRN (04:20)
[2021-10-07] MEDS ORDERED: MAGNESIUM HYDROXIDE (MOM) ORAL LIQD UDC PO PRN (04:20)
[2021-10-07] MEDS ORDERED: WITCH HAZEL/ GLYCERIN PAD TP PRN (04:20)
[2021-10-07] MEDS ORDERED: PROMETHAZINE 25 MG RECT SUPP PR PRN (04:20)
[2021-10-07] MEDS ORDERED: SENNOSIDES 8.6 MG TAB PO PRN (04:20)
[2021-10-07] MEDS ORDERED: NALOXONE 0.4 MG/1 ML INJ IV PRN (04:20)
[2021-10-07] MEDS ORDERED: IBUPROFEN 800 MG TAB PO PRN (04:20)
--- NOTE | 2021-10-07 04:23 | Procedure Note ---
OB Delivery Note - Delivery Date of Delivery: 10/07/21 Surgeon: LAN VANG JR Estimated blood loss: other (QBL 1066) - Section Preop diagnosis: arrest of descent Postop diagnosis: same section procedure: section, primary low transverse Disposition: PACU Complications: none Narrative: Indication: 31-year-old G1 at 41 weeks 2 days presenting for induction of labor for postdates now failed for failure to descend for primary . Findings: Normal uterus, tubes and ovaries. Clear fluid. No nuchal cord. Delivery of male at 0325 Weight 3540g Height 21 in APGARS 8/9 EBL 1066 cc IVF 1000cc UOP 700cc bloody, not cleared by the end of the case Procedure: Patient was taken to the operating room prepped and draped in the usual sterile fashion. Pfannenstiel skin incision was made and carried down to the underlying fascia. Fascia was incised and the incision was distended bilaterally. Rectus fascia was dissected off the rectus muscle superiorly and inferiorly. Peritoneum was identified and entered. Peritoneal incision extended superiorly and inferiorly. The bladder was visualized. The bladder blade was placed. The Greg retractor was utilized for improved visualization. Uterine hysterotomy incision was made and extended bilaterally. The baby was delivered in the typical vertex fashion. Baby was bulb suction at delivery. The cord was cut and clamped and handed off to the team. The placenta was delivered spontaneously. The uterus was exteriorized and cleared of all clots and debris. Uterine incision was closed with a 0 Vicryl in a running locked fashion. Good hemostasis was noted after 3 [id number] sutures applied to the uterine incision. Surgicel powder was applied to the uterine incisional base to provide hemostasis. The urine was noted to be clearing at the end of the procedure. Uterus, tubes, and ovaries were returned to the abdominal cavity. Bilateral gutters were cleared and the abdomen and pelvis were irrigated. Good hemostasis noted. The rectus muscle was reapproximated with 2-0 Vicryl. Attention was directed towards the rectus fascia which was reapproximated with 0 PDS in a running fashion. The subcutaneous tissue was irrigated and reapproximated with 2-0 Vicryl in a running fashion. Skin was closed with a 4-0 Vicryl in a subcuticular fashion. The procedure was completed and the patient tolerated the procedure well. All instruments and lap counts were correct x2. - A at 1 minute: 8 at 5 minutes: 9 Gender: Male
--- NOTE | 2021-10-07 04:44 | Anesthesia Day of Surgery ---
Anesthesia Day of Surgery - Day of Surgery Patient Examined: Yes Patient H&P Reviewed: Yes Patient is NPO: Yes Beta Blockers: No Cardiac Clearance: No Pulmonary Clearance: No Sanjeev's Test: Negative
--- NOTE | 2021-10-07 04:50 | Progress Note ---
Regional Anesthesia Block - Regional Anesthesia Block Start Time: 04:30 Stop Time: 04:36 Performed By:: SHAYNE RENE Procedure: Patient consented for TAP block for post surgical pain management. Patient identified, monitors placed, and time out performed. TAP identified bilaterally via ultrasound. Skin prepped bilaterally with [chlorhexidine] and [22g stimuplex] needle advanced to the TAP. [Marcaine 0.25% 35ml] injected under ultrasound guidance on the [left] side. [Marcaine 0.25% 35ml] injected under ultrasound guidance on the [right] side. Negative aspiration every 5mL, No change in heart rate or rhythm. Patient tolerated the procedure well. No apparent complications seen.
--- NOTE | 2021-10-07 07:52 | Event Note ---
Date: 10/07/21 Patient noted to have severe range BPs . Will called preeclampsia by BP. Start mag x 24H.
[2021-10-07] MEDS ORDERED: hydrALAZINE 20 MG/1 ML INJ IV PRN (09:06)
[2021-10-07] MEDS ORDERED: MAGNESIUM SULFATE 4 GM/100 ML BAG IV ONE (09:07)
--- NOTE | 2021-10-07 09:22 | Progress Note ---
Assessment and Plan A: /postop day of delivery S/P primary LTCS. Preeclampsia with severe features. P: Continue triple antibiotics as ordered by MD (patient had prolonged labor and fever). Start Magnesium Sulfate 4 gram loading dose, then 2 gram/hr. Hydralazine for any severe range BPs. Strict I&O. Continue Gallegos catheter. Continue SCDs. Subjective - Subjective Date of service: 10/07/21 Principal diagnosis: /postop day of delivery S/P primary LTCS Interval history: Day of delivery S/P primary LTCS; preeclampsia with severe features. Patient reports headache. States she had visual disturbance earlier but this has resolved. Occasional dizziness. Patient reports: pain well controlled, no flatus, no nauseated : doing well Objective - Vital Signs Latest vital signs: Vital Signs Temp Pulse Resp BP BP Pulse Ox Pulse Ox 10/07/21 08:23 99.1 F 78 14 144/86 96 10/07/21 06:30 81 14 156/96 96 10/07/21 06:15 81 14 153/97 95 10/07/21 06:00 85 15 160/102 95 10/07/21 05:45 85 18 155/93 95 10/07/21 05:30 87 18 163/103 95 10/07/21 05:15 95 H 17 148/122 95 10/07/21 04:55 90 14 164/107 95 10/07/21 04:46 99 H 14 158/81 96 10/07/21 04:39 101.5 F H 89 16 171/108 96 10/07/21 01:52 105 H 97 10/07/21 01:47 102 H 97 10/07/21 01:42 100 H 97 10/07/21 01:37 102 H 98 10/07/21 01:32 112 H 99 10/07/21 01:27 126 H 98 10/07/21 01:22 119 H 97 10/07/21 01:17 116 H 98 10/07/21 01:13 131 H 137/71 10/07/21 01:12 112 H 100 10/07/21 01:07 122 H 98 10/07/21 01:02 92 H 98 10/07/21 00:57 94 H 132/80 97 10/07/21 00:52 93 H 98 10/07/21 00:47 94 H 98 10/07/21 00:42 104 H 116/59 98 10/07/21 00:41 99.1 F 10/07/21 00:37 119 H 98 10/07/21 00:32 119 H 98 10/07/21 00:29 127 H 132/73 10/07/21 00:27 109 H 97 10/07/21 00:22 130 H 97 10/07/21 00:17 137 H 96 10/07/21 00:13 99 H 120/76 10/07/21 00:12 109 H 96 10/07/21 00:07 91 H 95 10/07/21 00:02 95 H 95 10/06/21 23:57 92 H 110/61 95 10/06/21 23:56 93 H 94 10/06/21 23:52 94 H 95 10/06/21 23:47 94 H 95 10/06/21 23:43 93 H 115/65 10/06/21 23:42 91 H 95 10/06/21 23:37 95 H 95 10/06/21 23:32 94 H 95 10/06/21 23:28 94 H 122/73 10/06/21 23:27 94 H 95 10/06/21 23:22 94 H 95 10/06/21 23:17 88 96 10/06/21 23:12 90 153/78 97 10/06/21 23:07 112 H 99 10/06/21 23:02 113 H 99 10/06/21 22:58 109 H 162/74 10/06/21 22:57 110 H 98 10/06/21 22:52 116 H 99 10/06/21 22:47 112 H 99 10/06/21 22:42 115 H 159/74 98 10/06/21 22:37 113 H 98 10/06/21 22:32 114 H 97 10/06/21 22:27 108 H 131/85 97 10/06/21 22:22 119 H 97 10/06/21 22:17 114 H 97 10/06/21 22:13 122 H 142/85 10/06/21 22:12 127 H 98 10/06/21 22:07 114 H 96 10/06/21 22:02 110 H 96 10/06/21 21:58 103 H 133/85 10/06/21 21:57 110 H 96 10/06/21 21:52 114 H 96 10/06/21 21:47 112 H 96 10/06/21 21:43 114 H 135/77 10/06/21 21:42 113 H 97 10/06/21 21:37 118 H 97 10/06/21 21:32 108 H 97 10/06/21 21:28 125 H 135/82 10/06/21 21:27 131 H 97 10/06/21 21:22 132 H 97 10/06/21 21:17 106 H 96 10/06/21 21:14 87 87 10/06/21 21:12 111 H 107/60 98 10/06/21 21:07 103 H 98 10/06/21 21:02 104 H 98 10/06/21 21:01 98.8 F 10/06/21 20:59 114 H 123/76 10/06/21 20:57 102 H 98 10/06/21 20:52 92 H 96 10/06/21 20:47 90 97 10/06/21 20:42 89 130/73 97 10/06/21 20:37 93 H 96 10/06/21 20:33 98 10/06/21 20:32 93 H 98 10/06/21 20:27 102 H 97 10/06/21 20:22 92 H 95 10/06/21 20:17 97 H 96 10/06/21 20:12 95 H 141/75 95 10/06/21 20:08 97 H 94 10/06/21 20:07 92 H 94 10/06/21 20:03 94 H 94 10/06/21 20:02 95 H 94 10/06/21 19:57 95 H 136/81 94 10/06/21 19:52 96 H 97 10/06/21 19:47 95 H 99 10/06/21 19:43 114 H 134/87 10/06/21 19:42 120 H 100 10/06/21 19:37 111 H 98 10/06/21 19:32 113 H 100 10/06/21 19:27 107 H 177/101 99 10/06/21 19:22 117 H 99 10/06/21 19:17 113 H 99 10/06/21 19:13 113 H 178/94 10/06/21 19:12 122 H 99 10/06/21 19:08 113 H 145/84 10/06/21 19:07 114 H 99 10/06/21 19:02 125 H 100 10/06/21 19:00 100.7 F H 10/06/21 18:57 120 H 150/94 100 10/06/21 18:52 124 H 100 10/06/21 18:47 104 H 100 10/06/21 18:42 113 H 144/83 100 10/06/21 18:37 116 H 100 10/06/21 18:33 115 H 131/73 10/06/21 18:32 116 H 100 10/06/21 18:27 122 H 131/91 100 10/06/21 18:22 100 H 100 10/06/21 18:17 107 H 100 10/06/21 18:13 95 H 142/74 10/06/21 18:12 93 H 95 10/06/21 18:07 95 H 95 10/06/21 18:02 95 H 97 10/06/21 17:58 100 H 139/87 10/06/21 17:57 96 H 100 10/06/21 17:52 105 H 100 10/06/21 17:47 103 H 99 10/06/21 17:42 96 H 134/77 98 10/06/21 17:37 106 H 100 10/06/21 17:32 122 H 99 10/06/21 17:27 131 H 97 10/06/21 17:22 91 H 96 10/06/21 17:17 93 H 98 10/06/21 17:12 101 H 124/65 98 10/06/21 17:07 90 96 10/06/21 17:02 107 H 97 10/06/21 16:57 119 H 120/63 98 10/06/21 16:52 115 H 98 10/06/21 16:47 87 97 10/06/21 16:43 99 H 122/72 10/06/21 16:42 92 H 117/66 98 10/06/21 16:37 110 H 98 10/06/21 16:32 93 H 98 10/06/21 16:28 100 H 117/64 10/06/21 16:27 99 H 98 10/06/21 16:22 93 H 96 10/06/21 16:17 91 H 96 10/06/21 16:13 95 H 130/66 10/06/21 16:12 90 97 10/06/21 16:07 88 98 10/06/21 16:02 91 H 98 10/06/21 16:00 99.7 F H 10/06/21 15:58 103 H 114/72 10/06/21 15:57 99 H 99 10/06/21 15:52 92 H 95 10/06/21 15:50 95 H 94 10/06/21 15:47 95 H 94 10/06/21 15:44 96 H 136/82 94 10/06/21 15:42 94 H 96 10/06/21 15:37 98 H 99 10/06/21 15:32 114 H 99 10/06/21 15:28 109 H 158/78 10/06/21 15:27 106 H 99 10/06/21 15:22 110 H 100 10/06/21 15:17 110 H 98 10/06/21 15:13 108 H 161/86 10/06/21 15:12 108 H 100 10/06/21 15:07 104 H 100 10/06/21 15:02 108 H 99 10/06/21 14:57 96 H 144/83 98 10/06/21 14:52 92 H 98 10/06/21 14:47 112 H 99 10/06/21 14:42 100 H 97 10/06/21 14:37 104 H 99 10/06/21 14:32 101 H 98 10/06/21 14:27 102 H 133/84 99 10/06/21 14:22 105 H 98 10/06/21 14:17 102 H 99 10/06/21 14:12 102 H 130/82 100 10/06/21 14:07 118 H 99 10/06/21 14:02 101 H 98 10/06/21 13:58 99 H 126/79 10/06/21 13:57 98 H 99 10/06/21 13:52 107 H 99 10/06/21 13:51 99.2 F 10/06/21 13:49 103 H 122/75 10/06/21 13:47 112 H 99 10/06/21 13:42 119 H 145/91 99 10/06/21 13:37 123 H 99 10/06/21 13:32 118 H 98 10/06/21 13:27 103 H 147/90 98 10/06/21 13:22 99 H 96 10/06/21 13:19 96 H 94 10/06/21 13:17 96 H 95 10/06/21 13:12 92 H 134/81 95 10/06/21 13:10 96 H 94 10/06/21 13:07 93 H 95 10/06/21 13:04 98 H 94 10/06/21 13:02 100 H 96 10/06/21 12:57 102 H 135/79 95 10/06/21 12:52 99 H 95 10/06/21 12:47 95 H 97 10/06/21 12:43 107 H 148/78 10/06/21 12:42 108 H 98 10/06/21 12:37 105 H 94 10/06/21 12:32 98 H 95 10/06/21 12:27 100 H 139/84 98 10/06/21 12:22 106 H 97 10/06/21 12:17 100 H 99 10/06/21 12:12 115 H 138/90 98 10/06/21 12:11 114 H 92 10/06/21 12:07 102 H 98 10/06/21 12:02 106 H 98 10/06/21 11:57 113 H 138/86 98 10/06/21 11:52 107 H 98 10/06/21 11:47 105 H 98 10/06/21 11:43 108 H 133/93 10/06/21 11:42 97 H 99 10/06/21 11:37 99 H 98 10/06/21 11:33 92 H 94 10/06/21 11:32 92 H 96 10/06/21 11:27 92 H 124/81 97 10/06/21 11:22 100 H 96 10/06/21 11:17 90 95 10/06/21 11:12 93 H 123/76 95 10/06/21 11:07 102 H 98 10/06/21 11:02 104 H 97 10/06/21 10:58 98 H 131/73 10/06/21 10:57 112 H 97 10/06/21 10:52 103 H 97 10/06/21 10:47 100 H 98 10/06/21 10:42 107 H 133/78 98 10/06/21 10:37 116 H 97 10/06/21 10:32 89 94 11/13/21 10:31 93 H 94 10/06/21 10:28 106 H 129/79 10/06/21 10:27 92 H 96 10/06/21 10:22 105 H 97 10/06/21 10:17 99 H 96 10/06/21 10:13 97.7 F 102 H 128/71 10/06/21 10:12 116 H 95 10/06/21 10:07 113 H 97 10/06/21 10:02 99 H 94 10/06/21 09:57 112 H 128/70 97 10/06/21 09:52 105 H 97 10/06/21 09:47 93 H 95 10/06/21 09:46 94 H 94 10/06/21 09:42 103 H 95 10/06/21 09:41 98 H 110/57 10/06/21 09:39 101 H 94 10/06/21 09:37 105 H 93 10/06/21 09:32 89 93 10/06/21 09:27 89 109/57 93 10/06/21 09:22 89 93 Intake and Output 10/06/21 10/07/21 10/07/21 23:59 07:59 15:59 Intake Total 50 1700 Output Total 40724 900 Balance 50 -82239 -900 Intake: IV 50 1700 AMPICILLIN/NS 1 GM/50 ML 50 1 gm In 50 ml @ 100 mls/ hr IV Q4H [facility] Rx#: [id number] Output: Urine 16505 900 Indwelling 00168 Indwelling Catheter 900 Other: Total, Output Amount 900 Estimated Blood Loss 1,066 - Exam Cardiovascular: Present: Regular rate Lungs: Present: Clear to auscultation Abdomen: Present: normal appearance, soft, normal bowel sounds. Absent: distention, tenderness, guarding, rigidity Uterus: Present: normal, firm, fundal height below umbilicus. Absent: [place] gginess, tenderness Extremities: Present: edema - Labs Labs: Abnormal lab results 10/06/21 10/06/21 Range/Units 21:35 21:35 WBC 15.0 H (4.5-11.0) K/mm3 Lactate Dehydrogenase 287 H (91-180) units/L
[2021-10-07] MEDS: GENTAMICIN/NS 80 MG/100 ML 100 ML IV SCH ×2 (09:47→17:40)
[2021-10-07] MEDS ORDERED: MAGNESIUM SULFATE 40GM/1000ML 40 GM/1,000 ML BAG IV SCH (10:00)
--- NOTE | 2021-10-07 10:16 | Post Anesthesia Evaluation ---
- Post Anesthesia Evaluation Patient Participated: Yes Airway Patent: Yes Stable Respiratory Function: Yes Nausea/Vomiting: No Temp > 96.8F: Yes Pain Manageable: Yes Adequeate Hydration: Yes Anesthesia Complications: No Block Receding Appropriately: Yes Patient on Ventilator: No
[2021-10-07] MEDS: LACTATED RINGERS 1,000 ML IV SCH (10:29)
[2021-10-07 11:16] LABS: Bacteria,Urine 1+ /HPF (Negative); Bilirubin,Urine NEG (Negative); Blood,Urine MOD (Negative); Color,Urine Straw (Yellow); Mucus,Urine FEW /HPF; Urobilinogen,Urine < 2.0 mg/dL (<2.0)
[2021-10-07] MEDS: AMPICILLIN/NS 2 GM/100 ML 2 GM/100 ML BAG IV SCH ×2 (12:56→18:39)
[2021-10-07] MEDS: KETOROLAC 30 MG/1 ML INJ IV SCH ×2 (12:58→18:41)
[2021-10-07 16:59] LABS: Hematocrit 34.9 % (30.3-42.9); Hemoglobin 11.9 gm/dl (10.1-14.3)
[2021-10-07] MEDS: oxyCODONE /ACETAMINOPHEN 5-325MG TAB PO PRN (22:15)
[2021-10-08] MEDS: oxyCODONE /ACETAMINOPHEN 5-325MG TAB PO PRN ×3 (03:30→18:10)
[2021-10-08] MEDS ORDERED: diphenhydrAMINE 25 MG CAP PO PRN (03:36)
[2021-10-08] MEDS: AMPICILLIN/NS 2 GM/100 ML 2 GM/100 ML BAG IV SCH ×3 (06:08→18:07)
[2021-10-08] MEDS: LACTATED RINGERS 1,000 ML IV SCH (06:33)
--- NOTE | 2021-10-08 11:44 | Progress Note ---
Assessment and Plan POD#1 C/S doing fair 1. Repeat CBC and Routine post op care 2. Remove dressing tomorrow Plan of care discussed Subjective Date of service: 10/08/21 Principal diagnosis: POD#1 C/S Interval history: Pt has no complainted. Pain controlled wih meds. Pt voiding without difficulty. Pt tolerates diet and vag bleed less than period. Denies fever or chills Objective - Constitutional Vitals: Vital Signs - 12hr 10/07/21 10/07/21 10/07/21 23:41 23:42 23:47 Temperature Pulse Rate 85 90 87 Respiratory Rate Blood Pressure 121/76 O2 Sat by Pulse 97 97 Oximetry O2 Sat by Pulse Oximetry [ Bilateral Throughout] 10/07/21 10/07/21 10/08/21 23:52 23:57 00:02 Temperature Pulse Rate 89 84 84 Respiratory Rate Blood Pressure O2 Sat by Pulse 97 96 96 Oximetry O2 Sat by Pulse Oximetry [ Bilateral Throughout] 10/08/21 10/08/21 10/08/21 00:07 00:11 00:12 Temperature Pulse Rate 81 82 81 Respiratory Rate Blood Pressure 111/73 O2 Sat by Pulse 95 94 95 Oximetry O2 Sat by Pulse Oximetry [ Bilateral Throughout] 10/08/21 10/08/21 10/08/21 00:17 00:22 00:27 Temperature Pulse Rate 84 83 78 Respiratory Rate Blood Pressure O2 Sat by Pulse 95 96 94 Oximetry O2 Sat by Pulse Oximetry [ Bilateral Throughout] 10/08/21 10/08/21 10/08/21 00:32 00:37 00:41 Temperature Pulse Rate 95 H 87 86 Respiratory Rate Blood Pressure 114/80 O2 Sat by Pulse 97 97 Oximetry O2 Sat by Pulse Oximetry [ Bilateral Throughout] 10/08/21 10/08/21 10/08/21 00:42 00:47 00:52 Temperature Pulse Rate 92 H 96 H 91 H Respiratory Rate Blood Pressure O2 Sat by Pulse 97 97 97 Oximetry O2 Sat by Pulse Oximetry [ Bilateral Throughout] 10/08/21 10/08/21 10/08/21 00:57 01:02 01:04 Temperature Pulse Rate 85 82 85 Respiratory Rate Blood Pressure O2 Sat by Pulse 97 95 94 Oximetry O2 Sat by Pulse Oximetry [ Bilateral Throughout] 10/08/21 10/08/21 10/08/21 01:07 01:11 01:12 Temperature Pulse Rate 80 84 83 Respiratory Rate Blood Pressure 105/67 O2 Sat by Pulse 95 94 95 Oximetry O2 Sat by Pulse Oximetry [ Bilateral Throughout] 10/08/21 10/08/21 10/08/21 01:17 01:22 01:27 Temperature Pulse Rate 94 H 85 84 Respiratory Rate Blood Pressure O2 Sat by Pulse 96 95 94 Oximetry O2 Sat by Pulse Oximetry [ Bilateral Throughout] 10/08/21 10/08/21 10/08/21 01:32 01:37 01:41 Temperature Pulse Rate 80 85 83 Respiratory Rate Blood Pressure 112/66 O2 Sat by Pulse 95 95 92 Oximetry O2 Sat by Pulse Oximetry [ Bilateral Throughout] 10/08/21 10/08/21 10/08/21 01:42 01:47 01:52 Temperature Pulse Rate 85 82 105 H Respiratory Rate Blood Pressure O2 Sat by Pulse 95 95 97 Oximetry O2 Sat by Pulse Oximetry [ Bilateral Throughout] 10/08/21 10/08/21 10/08/21 01:57 02:02 02:07 Temperature Pulse Rate 89 78 85 Respiratory Rate Blood Pressure O2 Sat by Pulse 95 95 95 Oximetry O2 Sat by Pulse Oximetry [ Bilateral Throughout] 10/08/21 10/08/21 10/08/21 02:12 02:17 02:22 Temperature Pulse Rate 74 105 H 88 Respiratory Rate Blood Pressure O2 Sat by Pulse 93 98 98 Oximetry O2 Sat by Pulse Oximetry [ Bilateral Throughout] 10/08/21 10/08/21 10/08/21 02:27 02:32 02:37 Temperature Pulse Rate 96 H 95 H 78 Respiratory Rate Blood Pressure O2 Sat by Pulse 98 97 96 Oximetry O2 Sat by Pulse Oximetry [ Bilateral Throughout] 10/08/21 10/08/21 10/08/21 02:41 02:42 02:47 Temperature Pulse Rate 86 89 81 Respiratory Rate Blood Pressure 111/75 O2 Sat by Pulse 97 97 Oximetry O2 Sat by Pulse Oximetry [ Bilateral Throughout] 10/08/21 10/08/21 10/08/21 02:52 02:57 03:02 Temperature Pulse Rate 84 86 81 Respiratory Rate Blood Pressure O2 Sat by Pulse 96 97 95 Oximetry O2 Sat by Pulse Oximetry [ Bilateral Throughout] 10/08/21 10/08/21 10/08/21 03:07 03:11 03:12 Temperature Pulse Rate 90 81 82 Respiratory Rate Blood Pressure 109/70 O2 Sat by Pulse 97 96 Oximetry O2 Sat by Pulse Oximetry [ Bilateral Throughout] 10/08/21 10/08/21 10/08/21 03:17 03:22 03:27 Temperature Pulse Rate 91 H 84 89 Respiratory Rate Blood Pressure O2 Sat by Pulse 97 98 98 Oximetry O2 Sat by Pulse Oximetry [ Bilateral Throughout] 10/08/21 10/08/21 10/08/21 03:32 03:37 03:41 Temperature Pulse Rate 88 86 86 Respiratory Rate Blood Pressure 134/84 O2 Sat by Pulse 97 98 Oximetry O2 Sat by Pulse Oximetry [ Bilateral Throughout] 10/08/21 10/08/21 10/08/21 03:42 03:47 03:52 Temperature Pulse Rate 88 88 88 Respiratory Rate Blood Pressure O2 Sat by Pulse 98 98 97 Oximetry O2 Sat by Pulse Oximetry [ Bilateral Throughout] 10/08/21 10/08/21 10/08/21 03:53 03:57 04:02 Temperature Pulse Rate 86 91 H 95 H Respiratory Rate Blood Pressure O2 Sat by Pulse 93 97 96 Oximetry O2 Sat by Pulse Oximetry [ Bilateral Throughout] 10/08/21 10/08/21 10/08/21 04:07 04:11 04:12 Temperature Pulse Rate 89 82 91 H Respiratory Rate Blood Pressure 130/75 O2 Sat by Pulse 97 97 Oximetry O2 Sat by Pulse Oximetry [ Bilateral Throughout] 10/08/21 10/08/21 10/08/21 04:17 04:22 04:27 Temperature Pulse Rate 88 82 85 Respiratory Rate Blood Pressure O2 Sat by Pulse 98 97 96 Oximetry O2 Sat by Pulse Oximetry [ Bilateral Throughout] 10/08/21 10/08/21 10/08/21 04:58 08:12 09:42 Temperature 97.5 F L 98.0 F Pulse Rate 103 H 92 H Respiratory 18 17 16 Rate Blood Pressure 113/81 133/89 O2 Sat by Pulse 98 99 Oximetry O2 Sat by Pulse 100 Oximetry [ Bilateral Throughout] General appearance: Present: no acute distress - Respiratory Respiratory effort: normal - Breasts Breasts: normal - Cardiovascular Rhythm: regular Extremities: No edema - Gastrointestinal General gastrointestinal: Present: soft, non-tender, other (Dressing C/D/I) - Genitourinary Female genitourinary: other (Uterus firm, non-tender) - Integumentary Integumentary: warm, dry - Neurologic Neurologic: moves all extremities - Psychiatric Psychiatric: appropriate mood/affect - Labs CBC & Chem 7: 10/07/21 16:42 10/06/21 21:35 Labs: Abnormal lab results 10/07/21 10/07/21 10/08/21 Range/Units 16:42 23:23 09:01 Magnesium 5.50 H 6.40 H 4.40 H (1.7-2.3) mg/dL Medications & Allergies - Medications Allergies/Adverse Reactions: Allergies butorphanol [From Stadol] Adverse Reaction (Verified 10/05/21 12:23) Anaphylaxis Home Medications: Home Medications Medication Instructions Recorded Confirmed Last Taken Type Ibuprofen [Motrin 800 MG tab] 800 mg PO Q6H PRN #30 tablet 10/07/21 Unknown Rx oxyCODONE /ACETAMINOPHEN [Percocet 1 tab PO Q6H PRN #30 tablet 10/07/21 Unknown Rx 5/325 mg] Active Medications: Generic Name Dose Route Start Last Admin Trade Name Alirioq PRN Reason Stop Dose Admin Acetaminophen 650 mg 10/04/21 17:08 10/06/21 19:39 Acetaminophen 325 Mg Tab PO 650 mg Q4H PRN Administration Pain, Mild (1-3) Carboprost Tromethamine 250 mcg 10/04/21 17:08 Carboprost Tromethamine 250 Mcg/1 Ml Inj IM ONCE PRN Uterine Bleeding Diphenhydramine HCl 25 mg 10/08/21 03:36 Diphenhydramine 25 Mg Cap PO QHS PRN Sleep Ephedrine Sulfate 10 mg 10/04/21 17:08 Ephedrine Sulfate 50 Mg/1 Ml Inj IV Q2M PRN Hypotension Fentanyl 100 mcg 10/04/21 17:08 10/06/21 05:01 Fentanyl 100 Mcg/2 Ml Inj IV 100 mcg Q2H PRN Administration Pain,Severe (7-10) LABOR PAIN Hydralazine HCl 5 mg 10/07/21 09:06 Hydralazine 20 Mg/1 Ml Inj IV Q30MIN PRN Hypertension Hydrocortisone Acetate 25 mg 10/07/21 04:20 Hydrocortisone 25 Mg Rectal Supp HI BID PRN Hemorrhoids Lactated Ringer's 1,000 mls @ 125 mls/hr 10/04/21 17:15 10/08/21 06:33 Lactated Ringers IV 125 mls/hr DIRECT [place] Administration Fentanyl/Bupivacaine/Sodium Chlor 200 mcg in 100 mls @ 12 mls/hr 10/06/21 06:00 10/06/21 20:00 Fentanyl-Bupiv 2 Mcg/Ml-0.125% EPIDURAL 12 mls/hr TITR [place] Administration Protocol Ampicillin Sodium 2 gm in 100 mls @ 100 mls/hr 10/07/21 04:00 10/08/21 06:08 Ampicillin/Ns 2 Gm/100 Ml IV 10/08/21 22:59 100 mls/hr Q6H [place] Administration Protocol Oxytocin/Sodium Chloride 30 units in 500 mls @ 40 mls/hr 10/07/21 05:00 Pitocin/Ns 30 Unit/500ml IV TITR [place] Protocol Magnesium Sulfate 40 gm in 1,000 mls @ 50 mls/hr 10/07/21 10:00 10/08/21 03:45 Magnesium Sulfate 40gm/1000ml IV 0 gm/hr DIRECT [place] 0 mls/hr Infusion 2 GM/HR Ibuprofen 800 mg 10/07/21 04:20 Ibuprofen 800 Mg Tab PO Q6H PRN Pain, Mild (1-3) Loperamide HCl 2 mg 10/04/21 17:08 Loperamide 2 Mg Cap PO ONCE PRN give with Hemabate Magnesium Hydroxide 30 ml 10/07/21 04:20 Magnesium Hydroxide (Mom) Oral Liqd Udc PO QHS PRN Constip Unrelieved By Senna Mineral Oil 30 ml 10/04/21 17:08 Mineral Oil 30 Ml Oral Liqd PO QHS PRN Constipation Morphine Sulfate 4 mg 10/07/21 04:20 Morphine 4 Mg/1 Ml Inj IV Q4H PRN Pain , Severe (7-10) Multi-Ingredient Ointment 1 applic 10/07/21 04:20 Lanolin/Zinc/Dimethicone (Lansinoh) 7 Gm TP PRN PRN dryness/cracking Naloxone HCl 0.1 mg 10/07/21 04:20 Naloxone 0.4 Mg/1 Ml Inj IV Q2MIN PRN Res Rate </= 8 or 02 SAT < 92% Ondansetron HCl 4 mg 10/07/21 04:20 Ondansetron 4 Mg/2 Ml Inj IV Q8H PRN Nausea And Vomiting Oxycodone/Acetaminophen 1 tab 10/07/21 04:20 10/08/21 09:42 Oxycodone /Acetaminophen 5-325mg Tab PO 1 tab Q6H PRN Administration Pain, Moderate (4-6) Oxytocin 10 unit 10/04/21 17:08 Oxytocin 10 Unit/1 Ml Inj IM ONCE PRN Uterine Bleeding Promethazine HCl 25 mg 10/07/21 04:20 Promethazine 25 Mg Rect Supp HI Q6H PRN N/V IF NPO AND NO IV ACCESS Senna 17.2 mg 10/07/21 04:20 Sennosides 8.6 Mg Tab PO QHS PRN Constipation Simethicone 80 mg 10/07/21 04:20 Simethicone 80 Mg Chew Tab PO Q6H PRN Gas pain Terbutaline Sulfate 0.25 mg 10/04/21 17:08 Terbutaline 1 Mg/1 Ml Inj SUB-Q ONCE PRN Hyperstimulation/Hypertonicity Witch Mishel/Glycerin 1 each 10/07/21 04:20 Witch Mishel/ Glycerin Pad TP PRN PRN Hemorrhoids/cleansing/soothing
[2021-10-08 13:01] LABS: Basophils # (Auto) 0.1 K/mm3 (0.0-0.1); Basophils % (Auto) 0.5 % (0.0-1.8); Eosinophils % (Auto) 0.2 % (0.0-4.3); Hemoglobin 11.4 gm/dl (10.1-14.3); Lymphocytes # (Auto) 1.9 K/mm3 (1.2-5.4); Lymphocytes % (Auto) 9.7 % (13.4-35.0); Mean Corpuscular HGB Conc 35 % (30-34); Mean Corpuscular Volume 91 fl (79-97); Monocytes # (Auto) 1.1 K/mm3 (0.0-0.8); Monocytes % (Auto) 5.6 % (0.0-7.3); Platelet Count 190 K/mm3 (140-440); Red Blood Count 3.63 M/mm3 (3.65-5.03)
[2021-10-08] MEDS ORDERED: GENTAMICIN 380 MG in SODIUM CHLORIDE 0.9% 100 ML IV SCH (16:30)
--- NOTE | 2021-10-08 20:42 | Event Note ---
Date: 10/08/21 Dressing removed without difficulty and incision well approximated. Will continue amp/gent/clinda with endometritis and leucocytosis.
[2021-10-09] MEDS: AMPICILLIN/NS 2 GM/100 ML 2 GM/100 ML BAG IV SCH ×2 (07:01)
[2021-10-09 07:52] LABS: Basophils % (Auto) 0.3 % (0.0-1.8); Eosinophils # (Auto) 0.1 K/mm3 (0.0-0.4); Eosinophils % (Auto) 0.9 % (0.0-4.3); Hematocrit 29.6 % (30.3-42.9); Hemoglobin 9.9 gm/dl (10.1-14.3); Lymphocytes # (Auto) 2.5 K/mm3 (1.2-5.4); Lymphocytes % (Auto) 18.1 % (13.4-35.0); Mean Corpuscular HGB Conc 33 % (30-34); Mean Corpuscular Volume 92 fl (79-97); Monocytes # (Auto) 0.7 K/mm3 (0.0-0.8); Monocytes % (Auto) 5.4 % (0.0-7.3); Platelet Count 201 K/mm3 (140-440); Red Blood Count 3.22 M/mm3 (3.65-5.03); Red Cell Distribution Width 13.8 % (13.2-15.2)
--- NOTE | 2021-10-09 09:59 | Progress Note ---
Assessment and Plan A: S/P LTCS Endometriosis with Leukocytosis P: Continue routine pp orders Continue abt Encourage po fluids and ambulation Anticipate d/c home within 24-48 hrs Subjective - Subjective Date of service: 10/09/21 Principal diagnosis: POD#2 C/S Interval history: 31 y/o presents to [facility] @ 41wks for an IOL r/t post dates. Pt denies VB or LOF and admits to active FM. She initiated her pnc @ [facility] location @ 8 wks gestation. Pt has had an uneventful preg. Medical and family hx is unremarkable. Pt had her left oophorectomy and a tumor removed about 10 yrs ago. She is GBS pos. Pt was admitted to L&D for a cervical IOL. Patient reports: appetite normal, voiding normally, pain well controlled, flatus, ambulating normally [place]: doing well, bottle feeding Objective - Vital Signs Latest vital signs: Vital Signs Temp Pulse Resp BP Pulse Ox Pulse Ox 10/09/21 08:32 97.8 F 95 H 17 107/81 99 10/09/21 03:57 97.9 F 76 20 114/81 93 10/09/21 01:00 18 10/09/21 00:15 98.3 F 94 H 20 112/77 95 10/09/21 00:00 18 10/08/21 20:00 98 10/08/21 19:45 98.2 F 80 20 100/70 98 10/08/21 18:10 16 10/08/21 15:53 98.0 F 97 H 17 118/76 97 10/08/21 12:25 98.1 F 79 17 116/82 96 10/08/21 12:06 100 Intake and Output 10/08/21 10/09/21 10/09/21 22:59 06:59 14:59 Intake Total 480 750 340 Output Total 400 Balance 80 750 340 Intake: IV 150 100 AMPICILLIN/NS 2 GM/100 ML 100 100 2 gm In 100 ml @ 100 mls /hr IV Q6H [place] Rx#: [id number] CLEOCIN 900 MG/50 mL 900 50 mg In 50 ml @ 100 mls/hr IV Q8H [place] Rx#:[id number] Oral 240 240 Intake, Free Water 240 600 Output: Urine 400 Void 400 Other: Total, Intake Amount 240 240 Total, Output Amount 400 # Voids Indwelling Catheter 1 Void 1 1 1 # Bowel Movements 1 1 - Exam Breasts: Present: normal Abdomen: Present: normal appearance, soft, normal bowel sounds Vulva: both: normal Uterus: Present: normal, firm, fundal height below umbilicus Extremities: Present: normal Incision: Present: normal, dry, intact - Labs Labs: Abnormal lab results 10/08/21 10/08/21 10/09/21 Range/Units 12:37 12:37 07:38 WBC 20.1 H 13.9 H (4.5-11.0) K/mm3 RBC 3.63 L 3.22 L (3.65-5.03) M/mm3 Hgb 9.9 L (10.1-14.3) gm/dl Hct 29.6 L (30.3-42.9) % MCHC 35 H (30-34) % Lymph % (Auto) 9.7 L (13.4-35.0) % [place] # (Auto) 1.1 H (0.0-0.8) K/mm3 Seg Neutrophils % 84.0 H 75.3 H (40.0-70.0) % Seg Neutrophils # 16.9 H 10.5 H (1.8-7.7) K/mm3 Magnesium 3.70 H (1.7-2.3) mg/dL
--- NOTE | 2021-10-09 14:42 | XRay Report ---
CHEST 2 VIEWS INDICATION / CLINICAL INFORMATION: c/o shortness of breath. COMPARISON: None available. FINDINGS: SUPPORT DEVICES: None. HEART / MEDIASTINUM: No significant abnormality. LUNGS / PLEURA: No significant pulmonary or pleural abnormality. No pneumothorax. ADDITIONAL FINDINGS: No significant additional findings. IMPRESSION: 1. No acute findings. Signer Name: Tom Jean MD Signed: 10/09/2021 2:38 PM Workstation Name: [id number]
[2021-10-09] MEDS: oxyCODONE /ACETAMINOPHEN 5-325MG TAB PO PRN ×2 (16:33→22:24)
[2021-10-09] MEDS: FERROUS SULFATE 325 MG TAB PO SCH ×2 (18:28→22:25)
--- NOTE | 2021-10-10 10:59 | Progress Note ---
Assessment and Plan POD#3 C/S with bilateral lower extrem edema, unclear cause of her headache 1. Will give lasix IV x1 dose 2. Tylenol prn headache with BP wnl 3. Routine care Subjective Date of service: 10/10/21 Principal diagnosis: POD#3 C/S Interval history: Pt ambulating in room much better than 2days ago. Pt voiding without difficulty. When asked pt admits to headache that started today. Pt c/o swelling to lower extremities. Pt is breast feeding. Vag bleed less than a period. Pain controlled with meds. Objective - Constitutional Vitals: Vital Signs - 12hr 10/09/21 10/10/21 10/10/21 23:24 00:39 04:45 Temperature 98.5 F 98.2 F Pulse Rate 94 H 98 H Respiratory 18 20 18 Rate Blood Pressure 119/80 Blood Pressure 124/68 [Right] O2 Sat by Pulse 97 99 Oximetry 10/10/21 08:07 Temperature 97.9 F Pulse Rate 88 Respiratory Rate Blood Pressure 124/84 Blood Pressure [Right] O2 Sat by Pulse 96 Oximetry General appearance: Present: no acute distress - Respiratory Respiratory effort: normal - Breasts Breasts: normal - Cardiovascular Rhythm: regular Extremity abnormal: edema - Gastrointestinal General gastrointestinal: Present: soft, non-tender - Genitourinary Female genitourinary: other (Incision C/D/I and Uterus firm, 3cm below the umbilicus and non-tender) - Neurologic Neurologic: moves all extremities - Psychiatric Psychiatric: appropriate mood/affect - Labs CBC & Chem 7: 10/09/21 07:38 10/06/21 21:35 Medications & Allergies - Medications Allergies/Adverse Reactions: Allergies butorphanol [From Stadol] Adverse Reaction (Verified 10/05/21 12:23) Anaphylaxis Home Medications: Home Medications Medication Instructions Recorded Confirmed Last Taken Type Ibuprofen [Motrin 800 MG tab] 800 mg PO Q6H PRN #30 tablet 10/07/21 Unknown Rx oxyCODONE /ACETAMINOPHEN [Percocet 1 tab PO Q6H PRN #30 tablet 10/07/21 Unknown Rx 5/325 mg] Active Medications: Generic Name Dose Route Start Last Admin Trade Name Freq PRN Reason Stop Dose Admin Acetaminophen 650 mg 10/04/21 17:08 10/06/21 19:39 Acetaminophen 325 Mg Tab PO 650 mg Q4H PRN Administration Pain, Mild (1-3) Carboprost Tromethamine 250 mcg 10/04/21 17:08 Carboprost Tromethamine 250 Mcg/1 Ml Inj IM ONCE PRN Uterine Bleeding Diphenhydramine HCl 25 mg 10/08/21 03:36 Diphenhydramine 25 Mg Cap PO QHS PRN Sleep Ephedrine Sulfate 10 mg 10/04/21 17:08 Ephedrine Sulfate 50 Mg/1 Ml Inj IV Q2M PRN Hypotension Fentanyl 100 mcg 10/04/21 17:08 10/06/21 05:01 Fentanyl 100 Mcg/2 Ml Inj IV 100 mcg Q2H PRN Administration Pain,Severe (7-10) LABOR PAIN Ferrous Sulfate 325 mg 10/09/21 11:00 10/09/21 22:25 Ferrous Sulfate 325 Mg Tab PO 325 mg BID [place] Administration Furosemide 40 mg 10/10/21 10:54 Furosemide 40 Mg/4 Ml Inj IV 10/10/21 10:55 ONCE ONE Hydralazine HCl 5 mg 10/07/21 09:06 Hydralazine 20 Mg/1 Ml Inj IV Q30MIN PRN Hypertension Hydrocortisone Acetate 25 mg 10/07/21 04:20 Hydrocortisone 25 Mg Rectal Supp VA BID PRN Hemorrhoids Lactated Ringer's 1,000 mls @ 125 mls/hr 10/04/21 17:15 10/08/21 06:33 Lactated Ringers IV 125 mls/hr DIRECT [place] Administration Fentanyl/Bupivacaine/Sodium Chlor 200 mcg in 100 mls @ 12 mls/hr 10/06/21 06:00 10/06/21 20:00 Fentanyl-Bupiv 2 Mcg/Ml-0.125% EPIDURAL 12 mls/hr TITR [place] Administration Protocol Oxytocin/Sodium Chloride 30 units in 500 mls @ 40 mls/hr 10/07/21 05:00 Pitocin/Ns 30 Unit/500ml IV TITR [place] Protocol Magnesium Sulfate 40 gm in 1,000 mls @ 50 mls/hr 10/07/21 10:00 10/08/21 03:45 Magnesium Sulfate 40gm/1000ml IV 0 gm/hr DIRECT [place] 0 mls/hr Infusion 2 GM/HR Ibuprofen 800 mg 10/07/21 04:20 10/09/21 00:00 Ibuprofen 800 Mg Tab PO 800 mg Q6H PRN Administration Pain, Mild (1-3) Loperamide HCl 2 mg 10/04/21 17:08 Loperamide 2 Mg Cap PO ONCE PRN give with Hemabate Magnesium Hydroxide 30 ml 10/07/21 04:20 Magnesium Hydroxide (Mom) Oral Liqd Udc PO QHS PRN Constip Unrelieved By Senna Mineral Oil 30 ml 10/04/21 17:08 Mineral Oil 30 Ml Oral Liqd PO QHS PRN Constipation Morphine Sulfate 4 mg 10/07/21 04:20 Morphine 4 Mg/1 Ml Inj IV Q4H PRN Pain , Severe (7-10) Multi-Ingredient Ointment 1 applic 10/07/21 04:20 10/09/21 22:25 Lanolin/Zinc/Dimethicone (Lansinoh) 7 Gm TP 1 applic PRN PRN Administration dryness/cracking Naloxone HCl 0.1 mg 10/07/21 04:20 Naloxone 0.4 Mg/1 Ml Inj IV Q2MIN PRN Res Rate </= 8 or 02 SAT < 92% Ondansetron HCl 4 mg 10/07/21 04:20 Ondansetron 4 Mg/2 Ml Inj IV Q8H PRN Nausea And Vomiting Oxycodone/Acetaminophen 1 tab 10/07/21 04:20 10/09/21 22:24 Oxycodone /Acetaminophen 5-325mg Tab PO 1 tab Q6H PRN Administration Pain, Moderate (4-6) Oxytocin 10 unit 10/04/21 17:08 Oxytocin 10 Unit/1 Ml Inj IM ONCE PRN Uterine Bleeding Promethazine HCl 25 mg 10/07/21 04:20 Promethazine 25 Mg Rect Supp VA Q6H PRN N/V IF NPO AND NO IV ACCESS Senna 17.2 mg 10/07/21 04:20 Sennosides 8.6 Mg Tab PO QHS PRN Constipation Simethicone 80 mg 10/07/21 04:20 10/09/21 16:35 Simethicone 80 Mg Chew Tab PO 80 mg Q6H PRN Administration Gas pain Terbutaline Sulfate 0.25 mg 10/04/21 17:08 Terbutaline 1 Mg/1 Ml Inj SUB-Q ONCE PRN Hyperstimulation/Hypertonicity Witch Mishel/Glycerin 1 each 10/07/21 04:20 Witch Mishel/ Glycerin Pad TP PRN PRN Hemorrhoids/cleansing/soothing
[2021-10-10] MEDS ORDERED: FUROSEMIDE 40 MG/4 ML INJ IV NR (11:30)
[2021-10-10] MEDS ORDERED: FUROSEMIDE 20 MG/2 ML INJ ONE (15:32)
[2021-10-10] MEDS: oxyCODONE /ACETAMINOPHEN 5-325MG TAB PO PRN (15:44)
[2021-10-10] MEDS: FERROUS SULFATE 325 MG TAB PO SCH ×2 (15:44→22:19)
--- NOTE | 2021-10-10 16:47 | Event Note ---
Date: 10/10/21 pt reevaluated. pt denies headache however BP has started to increase. Will observe closely for today and consider discharge tomorrow.
--- NOTE | 2021-10-11 09:13 | Discharge Summary ---
Providers - Providers Date of Admission: 10/04/21 15:00 Date of discharge: 10/11/21 Attending physician: LAN VANG JR, MD Primary care physician: [facility] [facility] Hospitalization Reason for admission: induction of labor, IUP at term Delivery: Procedure: primary low transverse Episiotomy: none Laceration: none Incision: normal, dry, intact Other procedures: other (pt had lasix for lower ext edema) complications: other (lower ext edema) Discharge diagnosis: IUP at term delivered baby: male Hospital course: Pt was admitted to [facility] for an IOL r/t postdates. She ended up with a primary LTCS r/t failure to descend. She received Lasix pp for lower ext edema, otherwise no real pp complications. See H&P, delivery summary, and pp notes. Condition at discharge: Stable Disposition: 01 HOME / SELF CARE / HOMELESS Plan - Discharge Medications Prescriptions: Ferrous Sulfate [Ferrous Sulfate 324 MG] 324 mg PO DAILY #120 tablet. Ibuprofen [Motrin 800 MG tab] 800 mg PO Q6H PRN #30 tablet PRN Reason: Pain, Mild (1-3) oxyCODONE /ACETAMINOPHEN [Percocet 5/325 mg] 1 tab PO Q6H PRN #30 tablet PRN Reason: Pain, Moderate (4-6) - Provider Discharge Summary Activity: routine, no sex for 6 weeks, no heavy lifting 4 weeks, no strenuous exercise Diet: other (high Fe diet) Instructions: routine Additional instructions: [] Smoking cessation referral if applicable(refer to patient education folder for contact #) [] Refer to [facility]'s [facility] Booklet Call your doctor immediately for: * Fever > 100.5 * Heavy vaginal bleeding ( >1 pad per hour) * Severe persistent headache * Shortness of breath * Reddened, hot, painful area to leg or breast * Drainage or odor from incision. * Keep incision clean and dry at all times and follow doctor's instructions regarding bathing/showering - Follow up plan Follow up: LAN VANG JR, MD [Staff Physician] - 14 Days
[2021-10-11] MEDS: FERROUS SULFATE 325 MG TAB PO SCH (09:44)
[2021-10-11 11:45] VITALS: BP 119/89
== END 2021-10-11 12:36 | disposition home or self-care (01) | DRG 787 ==
LOC: LD 15:00 → OB 10-08 04:45
PROVIDERS: ADMIT Obstetrics & Gynecology; ATTEND Obstetrics & Gynecology
PROC: 10907ZC Drainage of Amniotic Fluid, Therapeutic from Products of Conception, Via Natural or Artificial Opening (ICD-10-PCS; 2021-10-06)
PROC: 3E0R3BZ Introduction of Anesthetic Agent into Spinal Canal, Percutaneous Approach (ICD-10-PCS; 2021-10-06)
PROC: 00HU33Z Insertion of Infusion Device into Spinal Canal, Percutaneous Approach (ICD-10-PCS; 2021-10-06)
PROC: 10D00Z1 Extraction of Products of Conception, Low, Open Approach (ICD-10-PCS; principal; 2021-10-07)
PROC: 3E0T3BZ Introduction of Anesthetic Agent into Peripheral Nerves and Plexi, Percutaneous Approach (ICD-10-PCS; 2021-10-07)
DX: O48.0 Post-term pregnancy (principal); O86.12 Endometritis following delivery; O72.1 Other immediate postpartum hemorrhage; Z20.822 Contact with and (suspected) exposure to COVID-19; Z37.0 Single live birth; Z88.8 Allergy status to other drugs, medicaments and biological substances; O99.824 Streptococcus B carrier state complicating childbirth; Z3A.41 41 weeks gestation of pregnancy; K21.9 Gastro-esophageal reflux disease without esophagitis; O77.0 Labor and delivery complicated by meconium in amniotic fluid; O14.15 Severe pre-eclampsia, complicating the puerperium
CPT/HCPCS: 36415; 59200; 71046; 76815; 81001; 82565; 83615; 83735; 84450; 84460; 84550; 85014; 85018; 85025; 85027; 86592; 86850; 86900; 86901; 88307; 99211; G0378; J3490; J7121; J7502; G0463; J0290; J0595; J0690; J1100; J1580; J1885; J1940; J2210; J2405; J2590; J2765; J3010; J3475; J7120; U0003